=== PATIENT | female | born 1960 | race Caucasian/White ===

== ENCOUNTER 2017-06-10 06:13 | Emergency (ER) | payer OTHER ==
[2017-06-10] MEDS ORDERED: NORMAL SALINE 1000 ML 1,000 ML IV ONE ×2 (06:25→09:53)
--- NOTE | 2017-06-10 06:47 | ER Document Report ---
ED Respiratory Problem - General Chief Complaint: Breathing Difficulty Stated Complaint: DIFICULTY BREATHING Time Seen by Provider: 06/10/17 06:22 Notes: The patient is a 57-year-old female, past medical history MTHFR gene mutation ( on Coumadin), presents with 4 days of fever up to 102, sinus congestion, dry cough and lower sternal chest pain after she hit it against a hard object the other day. She was diagnosed with sinusitis several days ago and was started on a Z-Lalito. She denies leg swelling, hemoptysis, recent travel, back pain, nausea, vomiting, abdominal pain or headache. TRAVEL OUTSIDE OF THE [place] IN LAST 30 DAYS: No - Related Data Allergies/Adverse Reactions: No Known Allergies Allergy (Unverified 01/07/13 09:55) Home Medications: Current Home Medications Cyanocobalamin (Vitamin B-12) [Vitamin B-12] 1 tab PO DAILY 06/10/17 [History] Ergocalciferol (Vitamin D2) [Vitamin D] 1 tab PO DAILY 06/10/17 [History] Past Medical History - General Information source: Patient - Social History Smoking Status: Never Smoker Family History: Reviewed & Not Pertinent - Past Medical History Cardiac Medical History: Reports: Hx DVT - Patient is on Coumadin at this time. , Hx Hypertension, Hx Pulmonary Embolism Denies: Hx Heart Attack Pulmonary Medical History: Denies: Hx Asthma Neurological Medical History: Reports: Hx Seizures - The patient takes Dilantin. Denies: Hx Cerebrovascular Accident GI Medical History: Denies: Hx Hepatitis, Hx Hiatal Hernia, Hx Ulcer Infectious Medical History: Denies: Hx Hepatitis Past Surgical History: Reports: Hx Cholecystectomy, Hx Orthopedic Surgery - left meniscus, Hx Tubal Ligation. Denies: Hx Hysterectomy, Hx Mastectomy, Hx Open Heart Surgery, Hx Pacemaker Review of Systems - Review of Systems Notes: REVIEW OF SYSTEMS: CONSTITUTIONAL: -fevers, -chills EENT: -eye pain, -difficulty swallowing, -nasal congestion CARDIOVASCULAR: +chest pain, -syncope. RESPIRATORY: +cough, +SOB GASTROINTESTINAL: -abdominal pain, -nausea, -vomiting, -diarrhea GENITOURINARY: -dysuria, -hematuria MUSCULOSKELETAL: -back pain, -neck pain SKIN: -rash or skin lesions. HEMATOLOGIC: -easy bruising or bleeding. LYMPHATIC: -swollen, enlarged glands. NEUROLOGICAL: -altered mental status or loss of consciousness, -headache, - neurologic symptoms PSYCHIATRIC: -anxiety, -depression. ALL OTHER SYSTEMS REVIEWED AND NEGATIVE. Physical Exam - Vital signs Vitals: Temp Pulse Resp BP Pulse Ox 97.7 F 120 H 18 123/80 97 06/10/17 06:33 06/10/17 06:33 06/10/17 06:33 06/10/17 06:33 06/10/17 06:33 - Notes Notes: PHYSICAL EXAMINATION: GENERAL: Well-appearing, well-nourished and in no acute distress. HEAD: Atraumatic, normocephalic. EYES: Pupils equal round and reactive to light, extraocular movements intact, sclera anicteric, conjunctiva are normal. ENT: nares patent, oropharynx clear without exudates. Moist mucous membranes. NECK: Normal range of motion, supple without lymphadenopathy LUNGS: Breath sounds clear to auscultation bilaterally and equal. No wheezes rales or rhonchi. HEART: Regular rate and rhythm without murmurs. Tenderness over inferior sternum. ABDOMEN: Soft, nontender, normoactive bowel sounds. No guarding, no rebound. No masses appreciated. EXTREMITIES: Normal range of motion, no pitting or edema. No cyanosis. NEUROLOGICAL: Cranial nerves grossly intact. Normal speech, normal gait. Normal sensory and motor exams. PSYCH: Normal mood, normal affect. SKIN: Warm, Dry, normal turgor, no rashes or lesions noted. Course - Re-evaluation Re-evalutation: Patient's initial tachycardia on presentation resolved and she was at rest. With her prothrombotic history, subtherapeutic INR of breath and chest pain, d- dimer sent, which is slightly elevated. CTA chest ordered and it does not show any evidence of a PE or pneumonia. Instructed her to double up her Coumadin dose for today and follow-up with her primary care physician to have her INR rechecked. Patient feels much better after 2 L IV fluids and her tachycardia resolved. Instructed her to continue Flonase and saline spray for her sinus congestion. Given strict return precautions and she understands. - Vital Signs Vital signs: Temp Pulse Resp BP Pulse Ox 97.7 F 120 H 12 102/61 94 06/10/17 06:33 06/10/17 06:33 06/10/17 09:00 06/10/17 07:32 06/10/17 09:00 - Laboratory Result Diagrams: 06/10/17 06:45 06/10/17 06:45 Laboratory results interpreted by me: 06/10/17 06/10/17 06/10/17 06:45 06:45 06:45 MCHC 36.2 H PT 19.0 H D-Dimer 0.52 H Sodium 136.6 L Chloride 96 L Glucose 124 H AST 40 H ALT 62 H - Diagnostic Test Radiology reviewed: Image reviewed, Reports reviewed Radiology results interpreted by me: CXR: NAD CTA Chest: NAD - EKG Interpretation by Me EKG shows normal: Sinus rhythm, [place], Intervals, QRS Complexes, ST-T Waves Rate: Tachycardia Discharge - Discharge Clinical Impression: Shortness of breath Chest pain Qualifiers: Chest pain type: unspecified Qualified Code(s): R07.9 - Chest pain, unspecified Condition: Stable Disposition: HOME, SELF-CARE Additional Instructions: CHEST PAIN OF UNCLEAR CAUSE: The exact cause of your chest pain isn't clear. Fortunately, there is no evidence of a dangerous medical condition. Further testing may be required to find the source of the pain. Most often, we find that this pain is coming from the chest wall -- the muscles or rib joints in the chest. But chest pain can come from the lung and lung lining, the esophagus, the heart valves or heart lining, and even the stomach or gallbladder. Rest. Eat lightly until the pain is gone. We may prescribe medicine for pain and inflammation. You should call the physician immediately if the pain radiates to the shoulder, jaw or arms; if you start to run a fever or develop a cough; or if you develop shortness of breath, or other new or alarming symptoms. NORMAL EXAM AND WORKUP: At this time, your examination and workup show no significant abnormality. No significant abnormal physical findings were noted. All laboratory, EKG, and imaging (x-ray, CT scans, ultrasound) studies that were ordered show no significant abnormality. Although your examination and all studies that were ordered showed no significant abnormal finding, there are no examinations and no studies that are 100% accurate. There is always the possibility that some abnormality could exist and not be detected with physical examination or within the limits and capabilities of laboratory and other studies. You should return or follow up as you were instructed on your visit today for further evaluation if your symptoms do not resolve. CHEST WALL PAIN: Your chest pain may be coming from the chest wall. This is often caused by straining the muscles or joints in the chest during physical activity, direct trauma, coughing, or vigorous vomiting. Persons with arthritis are especially prone to this type of pain, due to inflammation of the cartilage joints near the breast bone. Occasionally, no cause can be found. Rest from strenuous physical activity. This kind of chest pain is usually made worse by movement of the chest. Depending on the symptoms, we may prescribe medicine for pain, muscle relaxation, and antiinflammatory effects. If the pain is new, and seems to be due to muscle strain, cold packs can help. Otherwise, apply gentle warmth to the painful area for 15 minutes every hour or two. You should call contact the doctor immediately if things change. Further evaluation is needed if you develop a fever or cough, if the nature of the pain changes, or if you become short of breath. FOLLOW-UP CARE: If you have been referred to a physician for follow-up care, call the physician s office for an appointment as you were instructed or within the next two days. If you experience worsening or a significant change in your symptoms, notify the physician immediately or return to the Emergency Department at any time for re-evaluation. SHORTNESS OF BREATH OR DYSPNEA: You were evaluated for shortness of breath, or dyspnea. Dyspnea has many causes, and some are more serious than others. Sometimes it's impossible to diagnose the cause of dyspnea with the tests that are available on an emergency basis. Based on our evaluation today, you do not need hospitalization now. We found no evidence of pneumonia, collapsed lung, blood clots in the lung, tumors , or heart failure. Causes of non-specific dyspnea can include asthma or bronchospasm, hyperventilation, emotional distress, heart disease, emphysema, fibrosis of the lung, and stiffness of the chest wall. In healthy individuals with a single episode, it's sometimes reasonable to do nothing but wait to see if the problem occurs again. Additional tests used to evaluate dyspnea can include cardiac stress testing, echocardiography, pulmonary function testing, CAT scan of the chest, bronchoscopy or pulmonary biopsy. Return if shortness of breath persists or worsens, or if you develop chest pain, fever, cough, confusion, or fainting. NORMAL EXAM AND WORKUP: At this time, your examination and workup show no significant abnormality. No significant abnormal physical findings were noted. All laboratory, EKG, and imaging (x-ray, CT scans, ultrasound) studies that were ordered show no significant abnormality. Although your examination and all studies that were ordered showed no significant abnormal finding, there are no examinations and no studies that are 100% accurate. There is always the possibility that some abnormality could exist and not be detected with physical examination or within the limits and capabilities of laboratory and other studies. You should return or follow up as you were instructed on your visit today for further evaluation if your symptoms do not resolve. FOLLOW-UP CARE: If you have been referred to a physician for follow-up care, call the physician s office for an appointment as you were instructed or within the next two days. If you experience worsening or a significant change in your symptoms, notify the physician immediately or return to the Emergency Department at any time for re-evaluation. UPPER RESPIRATORY ILLNESS: You have a viral infection of the respiratory passages -- a "cold." This common infection causes nasal congestion, drainage, and often sore throat and cough. It is highly contagious. The disease usually lasts about 10 to 14 days. There is no "cure" for the viral infection -- it must run its course. If there is a complication, such as bacterial infection in the nose, sinuses, middle ear, or bronchial tubes, antibiotics may be required. The antibiotics won't affect the virus. Drink plenty of fluids. A humidifier may help. An expectorant medication or decongestant may make you more comfortable. Use acetaminophen or ibuprofen for fever or aches. See the doctor if fever persists over two days, if there is any significant worsening of your symptoms, or if you simply fail to improve as expected. USE OF ACETAMINOPHEN (Tylenol): Acetaminophen may be taken for pain relief or fever control. It's much safer than aspirin, offering a wider range of "safe" dosages. It is safe during . Some brand names are Tylenol, Panadol, Datril, Anacin 3, Tempra, and Liquiprin. Acetaminophen can be repeated every four hours. The following are maximum recommended dosages: >89 pounds or adults 650 mg to 900 mg Acetaminophen can be repeated every four hours. Maximum dose not to exceed 4000 mg a day. SMOKING: If you smoke, you should stop smoking. The tar and chemicals in cigarette smoke are harmful. Smoking has been shown to cause: emphysema chronic bronchitis lung cancer mouth and throat cancer stomach and pancreas cancer premature aging defects In addition, smoking increases ear and lung infections in children of smokers. FOLLOW-UP CARE: If you have been referred to a physician for follow-up care, call the physician s office for an appointment as you were instructed or within the next two days. If you experience worsening or a significant change in your symptoms, notify the physician immediately or return to the Emergency Department at any time for re-evaluation. Referrals: NANCY BILLY MD [Primary Care Provider] - Follow up as needed
--- NOTE | 2017-06-10 07:00 | RADIOLOGY REPORT (SQ) ---
EXAM DESCRIPTION: CHEST SINGLE VIEW COMPLETED DATE/TIME: 06/10/2017 6:46 am REASON FOR STUDY: Shortness of breath. COMPARISON: None. EXAM PARAMETERS: NUMBER OF VIEWS: One view. TECHNIQUE: Single frontal radiographic view of the chest acquired. RADIATION DOSE: NA LIMITATIONS: None. FINDINGS: LUNGS AND PLEURA: No consolidation, pneumothorax or pleural effusion. MEDIASTINUM AND HILAR STRUCTURES: No masses. Contour normal. HEART AND VASCULAR STRUCTURES: Heart normal in size. Normal vasculature. BONES: Degenerative changes in the spine. HARDWARE: None in the chest. IMPRESSION: No acute radiographic finding in the chest. TECHNICAL DOCUMENTATION: JOB ID: [id number] [place]-64 2010 [employer]- All Rights Reserved
[2017-06-10 07:22] LABS: ABSOLUTE LYMPHOCYTES (AUTO) 1.6 10^3/uL (0.5-4.7); ABSOLUTE MONOCYTES (AUTO) 0.5 10^3/uL (0.1-1.4); ABSOLUTE NEUT (AUTO) 3.3 10^3/uL (1.7-8.2); BASOPHILS % (AUTO) 0.6 % (0-2); EOSINOPHILS % (AUTO) 0.2 % (0-6); HEMATOCRIT 41.5 % (36.0-47.0); HGB HCT DIFFERENCE 3.5; LYMPHOCYTES % (AUTO) 28.7 % (13-45); MEAN CORPUSCULAR HEMOGLOBIN 30.6 pg (27.0-33.4); MEAN CORPUSCULAR HGB CONC 36.2 g/dL (32.0-36.0); MEAN CORPUSCULAR VOLUME 85 fl (80-97); RED CELL DISTRIBUTION WIDTH 12.6 % (11.5-14.0); SEGMENTED NEUTROPHILS % (AUTO) 60.5 % (42-78); WHITE BLOOD COUNT 5.5 10^3/uL (4.0-10.5)
[2017-06-10 07:29] LABS: PARTIAL THROMBOPLASTIN TIME 32.7 SEC (23.5-35.8)
[2017-06-10 07:31] LABS: D-DIMER 0.52 ug/mL (0.00-0.50)
[2017-06-10 07:37] LABS: ALANINE AMINOTRANSFERASE 62 U/L (9-52); ALBUMIN 4.4 g/dL (3.5-5.0); ALKALINE PHOSPHATASE 118 U/L (38-126); ANION GAP 14 (5-19); ASPARTATE AMINO TRANSFERASE 40 U/L (14-36); BILIRUBIN,DIRECT 0.3 mg/dL (0.0-0.4); BILIRUBIN,TOTAL 0.5 mg/dL (0.2-1.3); BLOOD UREA NITROGEN 16 mg/dL (7-20); CALCIUM 9.1 mg/dL (8.4-10.2); CARBON DIOXIDE 27 mmol/L (22-30); CHLORIDE 96 mmol/L (98-107); CREATINE KINASE 78 U/L (30-135); CREATININE RESULT 0.62 mg/dL (0.52-1.25); GLUCOSE 124 mg/dL (75-110); POTASSIUM 4.2 mmol/L (3.6-5.0); SODIUM 136.6 mmol/L (137-145); TOTAL PROTEIN 7.4 g/dL (6.3-8.2)
[2017-06-10 07:53] LABS: TROPONIN I < 0.012 ng/mL
--- NOTE | 2017-06-10 08:17 | EKG REPORT ---
SEVERITY:- ABNORMAL ECG - SINUS TACHYCARDIA JOSH, CONSIDER BIATRIAL ABNORMALITIES BORDERLINE R WAVE PROGRESSION, ANTERIOR LEADS : Confirmed by: Choco Waldron MD 10-Jun-2017 08:16:01
--- NOTE | 2017-06-10 08:29 | RADIOLOGY REPORT (SQ) ---
EXAM DESCRIPTION: CTA CHEST COMPLETED DATE/TIME: 06/10/2017 8:17 am REASON FOR STUDY: tachycardic, CP, SOB, d-dimer elevated, clot disor COMPARISON: None. TECHNIQUE: CT scan of the chest performed using helical scanning technique with dynamic intravenous contrast injection. Images reviewed with lung, soft tissue and bone windows. Reconstructed coronal and sagittal MPR images reviewed. Additional 3 dimensional post-processing performed to develop Maximal Intensity Projection images (MS P). All images stored on PACS. All CT scanners at this facility use dose modulation, iterative reconstruction, and/or weight based d osing when appropriate to reduce radiation dose to as low as reasonably achievable (ALARA). [facility]: Dose Right [facility]: CareDose [facility]: Dose Right [facility]: Teradose 4D [facility]: [employer] [facility] CONTRAST TYPE AND DOSE: contrast/concentration: Isovue 370.00 mg/ml; Total Contrast Delivered: 77.0 ml; Total Saline Delivered: 95.3 ml Contrast bolus adequate for pulmonary arteries and aorta. RENAL FUNCTION: BUN 16 creatinine 0.62. RADIATION DOSE: . LIMITATIONS: None. FINDINGS: LUNGS AND PLEURA: No masses, infiltrates, pneumothorax. No pleural effusions, calcificati ons. AORTA AND GREAT VESSELS: No aneurysm. Contrast bolus not optimized for the aorta. HEART: No pericardial effusion. No significant coronary artery calcifications. PULMONARY ARTERIES: No emboli visualized in the main pulmonary arteries or the segmental branches. HILAR AND MEDIASTINAL STRUCTURES: No identified masses or abnormal nodes. HARDWARE: None in the chest. UPPER ABDOMEN: No significant findings. Limited exam. THYROID AND OTHER SOFT TISSUES: No masses. No adenopathy. BONES: No acute or significant finding. 3D MIPS: Confirm above findings. OTHER: No other significant finding. IMPRESSION: NORMAL CTA OF THE CHEST. NO PULMONARY EMBOLI. COMMENT: Quality ID # [id number]: Final reports with documentation of one or more dose reduction techniques (e.g., Automated exposure control, adjustment of the mA and/or kV according to patient size, use of iterative reconstruction technique) TECHNICAL DOCUMENTATION: JOB ID: [id number] [employer]- All Rights Reserved
[2017-06-10 12:13] VITALS: BP 98/64
== END 2017-06-10 12:12 | disposition home or self-care (01) ==
LOC: ER 06:13
DX: R06.02 Shortness of breath (principal); R07.9 Chest pain, unspecified; J32.9 Chronic sinusitis, unspecified; R50.9 Fever, unspecified; R05 Cough; W22.8XXA Striking against or struck by other objects, initial encounter; E72.12 Methylenetetrahydrofolate reductase deficiency; Z79.01 Long term (current) use of anticoagulants; I10 Essential (primary) hypertension; R00.0 Tachycardia, unspecified
CPT/HCPCS: 93005; 99285; 96360; 36415; 82550; 85025; 85610; 85730; 80053; 84484; 85379; 87804; 83880; 71010; 71275; 93010; J7030

== ENCOUNTER 2018-05-01 21:54 | Emergency (ER) | payer SELFPAY ==
[2018-05-01] MEDS ORDERED: PENICILLIN V POTASSIUM 500 MG TABLET PO ONE (22:58)
--- NOTE | 2018-05-01 22:59 | ER Document Report ---
ED Oral Problem - General Chief Complaint: Toothache Stated Complaint: TOOTHACHE Time Seen by Provider: 05/01/18 22:55 Mode of Arrival: Ambulatory Information source: Patient TRAVEL OUTSIDE OF THE [place] IN LAST 30 DAYS: No - HPI Patient complains to provider of: Toothache Onset: Yesterday Onset: Gradual Quality of pain: Achy, Fullness, Pressure Severity: Moderate Pain Level: 4 Associated symptoms: Chills Relieved by: Nothing Similar symptoms previously: No Recently seen / treated by doctor/dentist: No Notes: Patient is a 58-year-old female presenting to the emergency department on the advice of her dentist for complaints of painful swelling to a mandibular tooth that started yesterday, she reports that she has brushed and flossed and used a WaterPik multiple times but the gums surrounding the tooth is swollen, painful and red, she reports some chills but no measurable fever, has an appointment with her dentist Thursday morning at 745 - Related Data Allergies/Adverse Reactions: No Known Allergies Allergy (Unverified 01/07/13 09:55) Past Medical History - General Information source: Patient - Social History Smoking Status: Never Smoker Chew tobacco use (# tins/day): No Frequency of alcohol use: Rare Drug Abuse: None Family History: Reviewed & Not Pertinent Patient has suicidal ideation: No Patient has homicidal ideation: No - Past Medical History Cardiac Medical History: Reports: Hx DVT - Patient is on Coumadin at this time. , Hx Hypertension, Hx Pulmonary Embolism Denies: Hx Heart Attack Pulmonary Medical History: Denies: Hx Asthma Neurological Medical History: Reports: Hx Seizures - The patient takes Dilantin. Denies: Hx Cerebrovascular Accident Renal/ Medical History: Denies: Hx Peritoneal Dialysis GI Medical History: Denies: Hx Hepatitis, Hx Hiatal Hernia, Hx Ulcer Infectious Medical History: Denies: Hx Hepatitis Past Surgical History: Reports: Hx Cholecystectomy, Hx Orthopedic Surgery - left meniscus, Hx Tubal Ligation. Denies: Hx Hysterectomy, Hx Mastectomy, Hx Open Heart Surgery, Hx Pacemaker Review of Systems - Review of Systems Constitutional: Chills EENT: See HPI Cardiovascular: No symptoms reported Respiratory: No symptoms reported Gastrointestinal: No symptoms reported Genitourinary: No symptoms reported Female Genitourinary: No symptoms reported Musculoskeletal: No symptoms reported Skin: No symptoms reported Hematologic/Lymphatic: No symptoms reported Neurological/Psychological: No symptoms reported -: Yes All other systems reviewed and negative Physical Exam - Vital signs Vitals: Temp Pulse Resp BP Pulse Ox 98.8 F 85 18 122/71 96 05/01/18 22:05 05/01/18 22:05 05/01/18 22:05 05/01/18 22:05 05/01/18 22:05 - Notes Notes: - General General appearance: Appears well, Alert In distress: None - HEENT Head: Normocephalic, Atraumatic Eyes: Normal Conjunctiva: Normal Extraocular movements intact: Yes Eyelashes: Normal Pupils: PERRL - Respiratory Respiratory status: No respiratory distress - Cardiovascular Rhythm: Regular - Abdominal Inspection: Normal - Back Back: Normal - Extremities General upper extremity: Normal inspection General lower extremity: Normal inspection - Neurological Neuro grossly intact: Yes Orientation: AAOx4 [place] Coma Scale Eye Opening: Spontaneous [place] Coma Scale Verbal: Oriented [place] Coma Scale Motor: Obeys Commands [place] Coma Scale Total: 15 - Psychological Associated symptoms: Normal affect, Normal mood - Skin Skin Temperature: Warm Skin Moisture: Dry Skin Color: Normal - HEENT Teeth diagram: 1 - Gingival swelling with erythema and tenderness Course - Re-evaluation Re-evalutation: 05/02/18 00:59 Patient with gingival swelling with erythema and tenderness around tooth 29, reporting chills as well, started on antibiotics and advised to follow-up with her dentist in the next 1-2 days or return if symptoms worsen, patient acknowledges understanding and agreement with this plan - Vital Signs Vital signs: Temp Pulse Resp BP Pulse Ox 98.4 F 77 16 115/68 98 05/01/18 23:01 05/01/18 23:01 05/01/18 23:01 05/01/18 23:01 05/01/18 23:01 Discharge - Discharge Clinical Impression: Dental infection Condition: Stable Disposition: HOME, SELF-CARE Instructions: [facility], Penicillin V K ([facility]), Toothache ([facility]) Additional Instructions: Follow up with your primary care provider and dentist in one to 2 days. Return to the emergency room immediately if symptoms worsen or any additional concerns. Prescriptions: Penicillin V Potassium [Penicillin Vk 500 mg Tablet] 500 mg PO TID #30 tablet Referrals: NANCY BILLY MD [Primary Care Provider] - Follow up as needed
[2018-05-01 23:11] VITALS: BP 115/68
== END 2018-05-01 23:07 | disposition home or self-care (01) ==
LOC: ER 21:54
DX: K04.7 Periapical abscess without sinus (principal); K08.89 Other specified disorders of teeth and supporting structures; M79.89 Other specified soft tissue disorders; Z79.01 Long term (current) use of anticoagulants; I10 Essential (primary) hypertension
CPT/HCPCS: 99282

== ENCOUNTER 2018-07-25 14:33 | Emergency (ER) | payer OTHER ==
--- NOTE | 2018-07-25 15:12 | ER Document Report ---
ED General - General Mode of Arrival: Ambulatory Information source: Patient TRAVEL OUTSIDE OF THE [place] IN LAST 30 DAYS: No <MARLYS VERA - Last Filed: 07/25/18 16:55> <MARIA D IBRAHIM - Last Filed: 07/25/18 18:24> - General Chief Complaint: Chest Pain Stated Complaint: CHEST PAIN Time Seen by Provider: 07/25/18 14:45 Notes: 58-year-old female that presents to the emergency department today with complaints of chest pain which initially began a few days ago. Patient states she had a few "twinges" over the last few days but today at around 0930 her chest pain began and has remained constant since then. Patient does mention that around 10 days ago she began going back to the gym and has been using the elliptical. Patient has a known seizure disorder and did have a "petite mal seizure" today which was not out of the ordinary and has no concerns regarding this. (MARLYS VERA) - Related Data Allergies/Adverse Reactions: iodine Allergy (Verified 07/25/18 14:42) Past Medical History - General Information source: Patient - Social History Smoking Status: Never Smoker Cigarette use (# per day): No Frequency of alcohol use: Occasional Drug Abuse: None Lives with: Family Family History: Reviewed & Not Pertinent Patient has suicidal ideation: No Patient has homicidal ideation: No - Past Medical History Cardiac Medical History: Reports: Hx DVT - Patient is on Coumadin at this time., Hx Hypertension, Hx Pulmonary Embolism Neurological Medical History: Reports: Hx Seizures - The patient takes Dilantin Past Surgical History: Reports: Hx Cholecystectomy, Hx Orthopedic Surgery - left meniscus, Hx Tubal Ligation <MARLYS VERA - Last Filed: 07/25/18 16:55> Review of Systems - Review of Systems Constitutional: No symptoms reported EENT: No symptoms reported Cardiovascular: See HPI, Chest pain Respiratory: No symptoms reported Gastrointestinal: No symptoms reported Genitourinary: No symptoms reported Female Genitourinary: No symptoms reported Musculoskeletal: No symptoms reported Skin: No symptoms reported Hematologic/Lymphatic: No symptoms reported Neurological/Psychological: No symptoms reported -: Yes All other systems reviewed and negative <MARLYS VERA - Last Filed: 07/25/18 16:55> Physical Exam <MARLYS VERA - Last Filed: 07/25/18 16:55> - Vital signs Vitals: Resp Pulse Ox 18 98 07/25/18 14:47 07/25/18 14:47 - Notes Notes: Physical Exam: General: Alert, appears well. HEENT: Normocephalic. Atraumatic. PERRL. Extraocular movements intact. Oropharynx clear. Neck: Supple. Non-tender. Respiratory: No respiratory distress. Clear and equal breath sounds bilaterally. Right upper anterior chest wall tenderness with palpation. Right parasternal tenderness to palpation. Tenderness with palpation of the right medial breast. Cardiovascular: Regular rate and rhythm. Abdominal: Normal Inspection. Non-tender. No distension. Normal Bowel Sounds. Back: Non-tender. No deformity or step off. Extremities: Moves all four extremities. Upper extremities: Normal inspection. Normal ROM. Lower extremities: Normal inspection. No edema. Normal ROM. Neurological: Normal cognition. AAOx4. Normal speech. Psychological: Normal affect. Normal Mood. Skin: Warm. Dry. Normal color. (MARLYS VERA) Course - Laboratory Result Diagrams: 07/25/18 14:54 07/25/18 14:54 <MARLYS VERA - Last Filed: 07/25/18 16:55> - Laboratory Result Diagrams: 07/25/18 14:54 07/25/18 14:54 <MARIA D IBRAHIM - Last Filed: 07/25/18 18:24> - Vital Signs Vital signs: Temp Pulse Resp BP Pulse Ox 13 102/50 L 97 07/25/18 18:01 07/25/18 18:00 07/25/18 18:01 - Laboratory Laboratory results interpreted by me: 07/25/18 07/25/18 07/25/18 14:54 14:54 15:53 PT 24.0 H Carbon Dioxide 32 H Glucose 111 H Phenytoin 7.1 L Discharge <MARLYS VERA - Last Filed: 07/25/18 16:55> <MARIA D IBRAHIM - Last Filed: 07/25/18 18:24> - Discharge Clinical Impression: Acute chest wall pain Condition: Stable Disposition: HOME, SELF-CARE Additional Instructions: Chest Wall Pain Your chest pain has been diagnosed as coming from the chest wall. This is often caused by straining the muscles or joints in the chest during physical activity, direct trauma, coughing, or vigorous vomiting. Persons with arthritis are especially prone to this type of pain, due to inflammation of the cartilage joints near the breast bone. Occasionally, no cause can be found. Rest from strenuous physical activity. This kind of chest pain is usually made worse by movement of the chest. Depending on the symptoms, we may prescribe medicine for pain, muscle relaxation, and antiinflammatory effects. If the pain is new, and seems to be due to muscle strain, cold packs can help . Otherwise, apply gentle warmth to the painful area for 15 minutes every hour or two. You should contact the doctor immediately if things change. Further evaluation is needed if you develop a fever or cough, if the nature of the pain changes, or if you become short of breath. Stop your exercise routine for now. Try moist heat to the painful areas. Take Tylenol for pain. Follow-up with your primary care provider this week if not improving. RETURN TO THE EMERGENCY ROOM IF ANY NEW OR WORSENING SYMPTOMS. Referrals: NANCY BILLY MD [Primary Care Provider] - Follow up as needed Scribe Attestation: 07/25/18 16:31 I personally performed the services described in the documentation, reviewed and edited the documentation which was dictated to the scribe in my presence, and it accurately records my words and actions. (MARIA D IBRAHIM) Scribe Documentation - Scribe Written by Isaias:: Isaias Hillman, 07/25/2018 1702 acting as scribe for :: Kyle <MARLYS VERA - Last Filed: 07/25/18 16:55>
[2018-07-25 15:22] LABS: ABSOLUTE MONOCYTES (AUTO) 0.5 10^3/uL (0.1-1.4); ABSOLUTE NEUT (AUTO) 4.8 10^3/uL (1.7-8.2); BASOPHILS % (AUTO) 0.5 % (0-2); EOSINOPHILS % (AUTO) 0.5 % (0-6); HEMATOCRIT 40.1 % (36.0-47.0); HEMOGLOBIN 13.9 g/dL (12.0-15.5); LYMPHOCYTES % (AUTO) 16.1 % (13-45); MEAN CORPUSCULAR HEMOGLOBIN 29.9 pg (27.0-33.4); MEAN CORPUSCULAR HGB CONC 34.6 g/dL (32.0-36.0); MEAN CORPUSCULAR VOLUME 86 fl (80-97); MONOCYTES % (AUTO) 8.4 % (3-13); PLATELET COUNT 246 10^3/uL (150-450); RED BLOOD COUNT 4.64 10^6/uL (3.72-5.28); RED CELL DISTRIBUTION WIDTH 12.4 % (11.5-14.0); SEGMENTED NEUTROPHILS % (AUTO) 74.5 % (42-78); TOTAL CELLS COUNTED % (AUTO) 100 %; WHITE BLOOD COUNT 6.5 10^3/uL (4.0-10.5)
[2018-07-25 15:24] LABS: INTERNATIONAL RATION (INR) 2.03
[2018-07-25 15:36] LABS: ALANINE AMINOTRANSFERASE 37 U/L (9-52); ALBUMIN 4.5 g/dL (3.5-5.0); ALKALINE PHOSPHATASE 104 U/L (38-126); ANION GAP 6 (5-19); ASPARTATE AMINO TRANSFERASE 32 U/L (14-36); BILIRUBIN,DIRECT 0.2 mg/dL (0.0-0.4); BILIRUBIN,TOTAL 0.3 mg/dL (0.2-1.3); BLOOD UREA NITROGEN 14 mg/dL (7-20); CALCIUM 9.2 mg/dL (8.4-10.2); CARBON DIOXIDE 32 mmol/L (22-30); CHLORIDE 101 mmol/L (98-107); CREATINE KINASE 53 U/L (30-135); GLUCOSE 111 mg/dL (75-110); POTASSIUM 4.5 mmol/L (3.6-5.0); SODIUM 138.5 mmol/L (137-145); TOTAL PROTEIN 7.4 g/dL (6.3-8.2)
--- NOTE | 2018-07-25 15:45 | RADIOLOGY REPORT (SQ) ---
EXAM DESCRIPTION: CHEST SINGLE VIEW COMPLETED DATE/TIME: 07/25/2018 3:27 pm REASON FOR STUDY: right sided chest pain COMPARISON: None. EXAM PARAMETERS: NUMBER OF VIEWS: One view. TECHNIQUE: Single frontal radiographic view of the chest acquired. RADIATION DOSE: NA LIMITATIONS: None. FINDINGS: LUNGS AND PLEURA: No opacities, masses or pneumothorax. No pleural effusion. MEDIASTINUM AND HILAR STRUCTURES: No masses. Contour normal. HEART AND VASCULAR STRUCTURES: Heart normal in size. Normal vasculature. BONES: No acute findings. HARDWARE: None in the chest. OTHER: No other significant finding. IMPRESSION: NO ACUTE RADIOGRAPHIC FINDING IN THE CHEST. TECHNICAL DOCUMENTATION: JOB ID: [id number] [employer]- All Rights Reserved Reading location - IP/workstation name: [email or web address]
[2018-07-25 15:48] LABS: CREATINE KINASE MB 0.46 ng/mL (<4.55)
[2018-07-25 15:52] LABS: TROPONIN I < 0.012 ng/mL
--- NOTE | 2018-07-25 16:45 | EKG REPORT ---
SEVERITY:- OTHERWISE NORMAL ECG - SINUS TACHYCARDIA : Confirmed by: Choco Waldron MD 25-Jul-2018 16:44:39
[2018-07-25 18:13] VITALS: BP 102/50
== END 2018-07-25 18:39 | disposition home or self-care (01) ==
LOC: ER 14:33
DX: R07.89 Other chest pain (principal); G40.909 Epilepsy, unspecified, not intractable, without status epilepticus; I10 Essential (primary) hypertension
CPT/HCPCS: 36415; 71045; 80053; 80185; 82550; 82553; 84484; 85025; 85610; 93005; 93010; 99284

== ENCOUNTER 2019-12-21 17:00 | Emergency (ER) | payer OTHER ==
[2019-12-21] MEDS ORDERED: ONDANSETRON 4 MG TAB.RAPDIS PO ONE (17:39)
--- NOTE | 2019-12-21 17:42 | ER Document Report ---
ED Medical Screen (RME) - General Chief Complaint: Flank Pain Stated Complaint: FLANK PAIN Time Seen by Provider: 12/21/19 17:32 Primary Care Provider: NANCY BILLY MD [Primary Care Provider] - Follow up as needed Mode of Arrival: Ambulatory Information source: Patient Notes: 59-year-old female presents to ED for complaint of right flank pain. She states she started on Thursday with severe nausea and flank pain. She states that she went to the urgent care on Thursday they gave her Zyrtec and Flonase for the sinus congestion and did not do anything else for the flank pain. She states she saw medicine doctor again on Thursday because of abdomen and side pain was much worse they did x-ray told her she had some constipation and told her to take some mag citrate called him again today and and it was still there so gave another dose mag citrate she said that the pain is just getting worse is not getting better. She does have a past medical history of cholecystectomy bilateral tubal ligation and a meniscus repair in the knee. She does have a clotting disorder and is on Coumadin and her INR today is 3.12. She drinks weekly does not use any drugs she does have a history of seizures high blood pressure and hypothyroid. Patient is alert oriented respirations regular and unlabored speaking in full sentences. I have greeted and performed a rapid initial assessment of this patient. A comprehensive ED assessment and evaluation of the patient, analysis of test results and completion of medical decision making process will be conducted by an additional ED providers. TRAVEL OUTSIDE OF THE [place] IN LAST 30 DAYS: No - Related Data Allergies/Adverse Reactions: iodine Allergy (Verified 07/25/18 14:42) Past Medical History - Social History Frequency of alcohol use: Social Drug Abuse: None - Past Medical History Cardiac Medical History: Reports: Hx DVT - Patient is on Coumadin at this time., Hx Hypertension, Hx Pulmonary Embolism Denies: Hx Heart Attack Pulmonary Medical History: Denies: Hx Asthma Neurological Medical History: Reports: Hx Seizures - The patient takes Dilantin. Denies: Hx Cerebrovascular Accident Renal/ Medical History: Denies: Hx Peritoneal Dialysis GI Medical History: Denies: Hx Hepatitis, Hx Hiatal Hernia, Hx Ulcer Infectious Medical History: Denies: Hx Hepatitis Past Surgical History: Reports: Hx Cholecystectomy, Hx Orthopedic Surgery - left meniscus, Hx Tubal Ligation. Denies: Hx Hysterectomy, Hx Mastectomy, Hx Open Heart Surgery, Hx Pacemaker Physical Exam - Vital signs Vitals: Temp 98.3 F 12/21/19 17:01 Course - Vital Signs Vital signs: Temp Pulse Resp BP Pulse Ox 98.3 F 112 H 16 139/78 H 96 12/21/19 17:07 12/21/19 17:07 12/21/19 17:07 12/21/19 17:07 12/21/19 17:07 Doctor's Discharge - Discharge Referrals: NANCY BILLY MD [Primary Care Provider] - Follow up as needed
[2019-12-21 18:24] LABS: APPEARANCE,URINE CLEAR; BILIRUBIN,URINE NEGATIVE (NEGATIVE); COLOR,URINE YELLOW; GLUCOSE, URINE NEGATIVE (NEGATIVE); KETONES,URINE NEGATIVE (NEGATIVE); LEUKOCYTE ESTERASE,URINE NEGATIVE (NEGATIVE); NITRITE,URINE NEGATIVE (NEGATIVE); PROTEIN,URINE NEGATIVE (NEGATIVE); URINE SPECIFIC GRAVITY 1.015; UROBILINOGEN,URINE NEGATIVE mg/dL (<2.0)
--- NOTE | 2019-12-21 18:52 | RADIOLOGY REPORT (SQ) ---
EXAM DESCRIPTION: CT ABD/PELVIS NO ORAL OR IV IMAGES COMPLETED DATE/TIME: 12/21/2019 6:29 pm REASON FOR STUDY: right flank pain COMPARISON: None. TECHNIQUE: CT scan of the abdomen and pelvis performed without intravenous or oral contrast. Images reviewed with lung, soft tissue, and bone windows. Reconstructed coronal and sagittal MPR images revi ewed. All images stored on PACS. All CT scanners at this facility use dose modulation, iterative reconstruction, and/or weight based d osing when appropriate to reduce radiation dose to as low as reasonably achievable (ALARA). [facility]: Dose Right [facility]: CareDose [facility]: Dose Right [facility]: Teradose 4D [facility]: Smart Mass Mosaic RADIATION DOSE: CT Rad equipment meets quality standard of care and radiation dose reduction techniq ues were employed. CTDIvol: 11.9 mGy. DLP: 677 mGy-cm.mGy. LIMITATIONS: None. FINDINGS: LOWER CHEST: No significant findings. No nodules or infiltrates. NON-CONTRASTED LIVER, SPLEEN, ADRENALS: Evaluation limited by lack of IV contrast. No identified sign ificant masses. PANCREAS: No masses. No peripancreatic inflammatory changes. GALLBLADDER: Surgically absent. RIGHT KIDNEY AND URETER: No suspicious masses. Assessment limited by lack of IV contrast. No signif icant calcifications. No hydronephrosis or hydroureter. LEFT KIDNEY AND URETER: No suspicious masses. Assessment limited by lack of IV contrast. No signifi cant calcifications. No hydronephrosis or hydroureter. AORTA AND RETROPERITONEUM: No aneurysm. No retroperitoneal masses or adenopathy. BOWEL AND PERITONEAL CAVITY: No obvious masses or inflammatory changes. No free fluid. APPENDIX: Normal. PELVIS, BLADDER, AND ABDOMINAL WALL:No abnormal masses. No free fluid. Bladder normal. BONES: No significant findings. OTHER: No other significant finding. IMPRESSION: NO SIGNIFICANT OR ACUTE PROCESS IN THE ABDOMEN OR PELVIS. COMMENT: Quality ID # [id number]: Final reports with documentation of one or more dose reduction techniques (e.g., Automated exposure control, adjustment of the mA and/or kV according to patient size, use of iterative reconstruction technique) TECHNICAL DOCUMENTATION: JOB ID: [id number] 2010 [employer]- All Rights Reserved Reading location - IP/workstation name: [email or web address]
[2019-12-21 19:09] LABS: ABSOLUTE LYMPHOCYTES (AUTO) 1.6 10^3/uL (0.5-4.7); ABSOLUTE MONOCYTES (AUTO) 0.8 10^3/uL (0.1-1.4); ABSOLUTE NEUT (AUTO) 4.3 10^3/uL (1.7-8.2); BASOPHILS % (AUTO) 0.6 % (0-2); EOSINOPHILS % (AUTO) 0.4 % (0-6); HEMATOCRIT 43.1 % (36.0-47.0); HEMOGLOBIN 15.3 g/dL (12.0-15.5); LYMPHOCYTES % (AUTO) 23.2 % (13-45); MEAN CORPUSCULAR HEMOGLOBIN 30.4 pg (27.0-33.4); MEAN CORPUSCULAR HGB CONC 35.4 g/dL (32.0-36.0); MEAN CORPUSCULAR VOLUME 86 fl (80-97); MONOCYTES % (AUTO) 11.9 % (3-13); PLATELET COUNT 246 10^3/uL (150-450); RED BLOOD COUNT 5.03 10^6/uL (3.72-5.28); RED CELL DISTRIBUTION WIDTH 12.4 % (11.5-14.0); SEGMENTED NEUTROPHILS % (AUTO) 63.9 % (42-78); TOTAL CELLS COUNTED % (AUTO) 100 %; WHITE BLOOD COUNT 6.7 10^3/uL (4.0-10.5)
[2019-12-21 19:20] LABS: ALKALINE PHOSPHATASE 110 U/L (38-126); ANION GAP 10 (5-19); ASPARTATE AMINO TRANSFERASE 42 U/L (14-36); BILIRUBIN,TOTAL 0.5 mg/dL (0.2-1.3); BLOOD UREA NITROGEN 15 mg/dL (7-20); CALCIUM 9.6 mg/dL (8.4-10.2); CARBON DIOXIDE 32 mmol/L (22-30); CHLORIDE 93 mmol/L (98-107); GLUCOSE 105 mg/dL (75-110); POTASSIUM 3.9 mmol/L (3.6-5.0); TOTAL PROTEIN 8.6 g/dL (6.3-8.2)
[2019-12-21] MEDS ORDERED: KETOROLAC TROMETHAMINE INJ/PF 30 MG/1 ML SDV IV ONE (21:50)
--- NOTE | 2019-12-21 21:55 | ER Document Report ---
ED General - General Chief Complaint: Flank Pain Stated Complaint: FLANK PAIN Time Seen by Provider: 12/21/19 17:32 Primary Care Provider: NANCY BILLY MD [Primary Care Provider] - Follow up as needed Mode of Arrival: Ambulatory Notes: Patient is a 59-year-old white female with a past medical history of prior cholecystectomy, clotting disorder on Coumadin who presented about a week ago to the urgent care with complaints of sinus symptoms and "upset stomach". She states she was placed on Flonase and Zyrtec. She states her sinus symptoms improved some but she started having more focal problems with the abdomen. States that she was having some bloating and discomfort generalized. She went and saw her primary, Dr. Jones who did an x-ray and suspected constipation, placed the patient on a bottle of magnesium citrate. That was yesterday. She called this morning saying she was not feeling much better, they gave her another bottle of magnesium citrate. She states she is having bowel movements however they are now watery. She admits to some mild associated nausea denies any vomiting. Denies any fever, recent travel or known sick contacts. Reports she is not had a menstrual cycle in over 2 years. She denies any urinary complaints. TRAVEL OUTSIDE OF THE [place] IN LAST 30 DAYS: No - Related Data Allergies/Adverse Reactions: iodine Allergy (Verified 07/25/18 14:42) Past Medical History - General Information source: Patient - Social History Smoking Status: Never Smoker Frequency of alcohol use: Social Drug Abuse: None Family History: Reviewed & Not Pertinent Patient has homicidal ideation: No - Past Medical History Cardiac Medical History: Reports: Hx DVT - Patient is on Coumadin at this time., Hx Hypertension, Hx Pulmonary Embolism Denies: Hx Heart Attack Pulmonary Medical History: Denies: Hx Asthma Neurological Medical History: Reports: Hx Seizures - The patient takes Dilantin. Denies: Hx Cerebrovascular Accident Renal/ Medical History: Denies: Hx Peritoneal Dialysis GI Medical History: Denies: Hx Hepatitis, Hx Hiatal Hernia, Hx Ulcer Infectious Medical History: Denies: Hx Hepatitis Past Surgical History: Reports: Hx Cholecystectomy, Hx Orthopedic Surgery - left meniscus, Hx Tubal Ligation. Denies: Hx Hysterectomy, Hx Mastectomy, Hx Open Heart Surgery, Hx Pacemaker Review of Systems - Review of Systems Gastrointestinal: Abdominal pain, Diarrhea, Nausea -: Yes All other systems reviewed and negative Physical Exam - Vital signs Vitals: Temp 98.3 F 12/21/19 17:01 - General General appearance: Appears well, Alert In distress: None - HEENT Mucous membranes: Normal - Respiratory Respiratory status: No respiratory distress Chest status: Nontender Breath sounds: Normal Chest palpation: Normal - Cardiovascular Rhythm: Regular Heart sounds: Normal auscultation - Abdominal Inspection: Other - Right upper quadrant scar from prior cholecystectomy, otherwise normal inspection Distension: No distension Bowel sounds: Normal Tenderness: Tender - Right lower quadrant. No evidence of peritonitis. - Back Back: No: CVA tenderness - Extremities General upper extremity: Normal inspection, Nontender, Normal color, Normal ROM, Normal temperature General lower extremity: Normal inspection, Nontender, Normal color, Normal ROM, Normal temperature, Normal weight bearing. No: Guru's sign - Neurological Neuro grossly intact: Yes Cognition: Normal Orientation: AAOx4 [place] Coma Scale Eye Opening: Spontaneous [place] Coma Scale Verbal: Oriented [place] Coma Scale Motor: Obeys Commands [place] Coma Scale Total: 15 Speech: Normal - Psychological Associated symptoms: Normal affect, Normal mood - Skin Skin Temperature: Warm Skin Moisture: Dry Skin Color: Normal Course - Re-evaluation Re-evalutation: 12/21/19 21:53 Patient with a slightly elevated lipase. She is tolerating oral intake well. She will stick to a clear liquid diet for the next 24 hours and follow-up with Dr. Jones tomorrow as discussed. AST and ALT slightly elevated, likely chronic. There is some microscopic blood in the urine moderately. Her work-up is largely otherwise unremarkable. CT scan showing no acute process per radiologist. Possible missed stone. Discussed with patient the importance of follow-up in 24 hours for repeat abdominal exam and possible repeat CAT scan if worsening signs or symptoms. She verbalized understood and agreed. Advised that she return here or any ER immediately with any new, persistent or worsening symptoms. She again verbalized understood and agreed. - Vital Signs Vital signs: Temp Pulse Resp BP Pulse Ox 98.3 F 87 16 104/78 97 12/21/19 17:07 12/21/19 21:33 12/21/19 21:33 12/21/19 21:33 12/21/19 21:33 - Laboratory Result Diagrams: 12/21/19 18:45 12/21/19 18:45 Laboratory results interpreted by me: 12/21/19 12/21/19 17:45 18:45 Sodium 135.3 L Chloride 93 L Carbon Dioxide 32 H AST 42 H ALT 44 H Total Protein 8.6 H Lipase 674.7 H Urine Blood MODERATE H Discharge - Discharge Clinical Impression: Flank pain Condition: Stable Disposition: HOME, SELF-CARE Instructions: Flank Pain ([facility]), Oral Narcotic Medication ([facility]) Additional Instructions: Follow-up with your regular doctor in 24 hours for reevaluation. Return here or any ER immediately with any new, persistent or worsening symptoms. Referrals: NANCY BILLY MD [Primary Care Provider] - Follow up as needed
[2019-12-21] MEDS ORDERED: HYDROCODONE/ACETAMINOPHEN 5-325 MG (6 TAB/ER DISP) PO PRN (22:13)
[2019-12-21 22:44] VITALS: BP 140/74
== END 2019-12-21 22:44 | disposition home or self-care (01) ==
LOC: ER 17:00
DX: R10.9 Unspecified abdominal pain (principal); R31.29 Other microscopic hematuria; R10.813 Right lower quadrant abdominal tenderness; R79.89 Other specified abnormal findings of blood chemistry; R74.0 Nonspecific elevation of levels of transaminase and lactic acid dehydrogenase [LDH]; I10 Essential (primary) hypertension; R11.0 Nausea; R19.7 Diarrhea, unspecified; I82.409 Acute embolism and thrombosis of unspecified deep veins of unspecified lower extremity; I26.99 Other pulmonary embolism without acute cor pulmonale; Z79.01 Long term (current) use of anticoagulants; Z90.49 Acquired absence of other specified parts of digestive tract
CPT/HCPCS: 99284; 96374; 36415; 87086; 83690; 85025; 87088; 80053; 81001; 74176; S0119; J1885

== ENCOUNTER → 2020-03-02 | Outpatient (CLI) | payer OTHER ==
--- NOTE | 2020-03-02 13:03 | RADIOLOGY REPORT (SQ) ---
EXAM DESCRIPTION: NM GASTRIC EMPTYING STUDY IMAGES COMPLETED DATE/TIME: 03/02/2020 12:31 pm REASON FOR STUDY: EPIGASTRIC PAIN (R10.13) R10.13 EPIGASTRIC PAIN COMPARISON: None. RADIONUCLIDE AND DOSE: 2 millicuries Tc-99m Sulfur Colloid. Egg salad sandwich The route of agent administration: Oral. TECHNIQUE: 1 minute serial static imaging performed at time of meal, 1 hour, 2 hours, 3 hours, and 4 hours as needed. Once stomach reaches 90% emptying, the test is complete. Image intensity values pl otted with respect to time with linear regression algorithm. LIMITATIONS: None. FINDINGS: Patient was observed for 4 hours. Immediate post meal serves as baseline. Gastric emptying at 30 minutes was 14.2%. Gastric emptying at 60 minutes was 28.4% Gastric emptying at 90 minutes was 42.6%. Gastric emptying at 120 minutes was 56.8%. Gastric emptying at 240 minutes was 100%. Normal values: 60 minutes: 30-90% retained. If less than 30%, abnormally rapid emptying. If greater than 90%, delaye d gastric emptying. 120 minutes: <60% retained. If greater than 60%, delayed gastric emptying. 240 minutes: <10% retained. If greater than 10%, delayed gastric emptying. IMPRESSION: NORMAL GASTRIC EMPTYING. TECHNICAL DOCUMENTATION: JOB ID: [id number] 2010 [employer]- All Rights Reserved rev Reading location - IP/workstation name: [email or web address]
== END ==
LOC: RAD 07:37
PROVIDERS: ATTEND Internal Medicine Gastroenterology
DX: R10.13 Epigastric pain (principal)
CPT/HCPCS: 78264; A9541

== ENCOUNTER 2020-07-03 06:39 | Emergency (ER) | payer OTHER ==
--- NOTE | 2020-07-03 07:15 | ER Document Report ---
ED General - General Chief Complaint: Abdominal Pain Stated Complaint: ABDOMINAL PAIN Time Seen by Provider: 07/03/20 06:54 Primary Care Provider: ALVARO EDWARDS MD [Primary Care Provider] - Follow up as needed Mode of Arrival: Medic Information source: Patient, Emergency Med Personnel Notes: MY NOTES 60-year-old female arrives by EMS after complaining of severe epigastric and right sided chest pain that awoke her from sleep at 02 30 this morning. Patient admits to decreased p.o. intake and was diagnosed with Covid on Thursday 5 days ago. 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 All her children are grown 1 daughter in [place]. Patient has a prior history of pulmonary emboli x2 with DVT history as well and she is on Coumadin lisinopril with HCTZ and also takes Dilantin. Patient has chronic leg edema and takes Lasix for this. She was given Zofran IV because of nausea. She denies any fever chills but has tachycardia upon arrival. She had a 10 out of 10 chest pain when she awoke and upon arrival it was 3 out of 5. At my exam at 0 700 she had 1 out of 5 chest pain. She tested positive for Covid at [facility] last week. EMS reported pulse ox of 96% on room air with respiratory rate 18 temperature 98.6 blood sugar 103 with heart rate 118 blood pressure 106/75. TRAVEL OUTSIDE OF THE [place] IN LAST 30 DAYS: No - HPI Onset: This morning Onset/Duration: Sudden, Persistent, Worse Quality of pain: Stabbing Severity: Moderate Pain Level: 3 Associated symptoms: Chest pain - No, Shortness of breath, Weakness Exacerbated by: Sitting Similar symptoms previously: Yes Recently seen / treated by doctor: Yes - Related Data Allergies/Adverse Reactions: iodine Allergy (Verified 07/03/20 07:04) Past Medical History - General Information source: Patient - Non-smoker - Social History Smoking Status: Never Smoker Cigarette use (# per day): No Chew tobacco use (# tins/day): No Smoking Education Provided: No Frequency of alcohol use: Occasional - Wine once a week Drug Abuse: None Lives with: Alone - No pets Family History: Reviewed & Not Pertinent Patient has suicidal ideation: No Patient has homicidal ideation: No - Past Medical History Cardiac Medical History: Reports: Hx DVT - Patient is on Coumadin at this time., Hx Hypertension, Hx Pulmonary Embolism Denies: Hx Heart Attack Pulmonary Medical History: Denies: Hx Asthma Neurological Medical History: Reports: Hx Seizures - The patient takes Dilantin. Denies: Hx Cerebrovascular Accident Renal/ Medical History: Denies: Hx Peritoneal Dialysis GI Medical History: Denies: Hx Hepatitis, Hx Hiatal Hernia, Hx Ulcer Infectious Medical History: Denies: Hx Hepatitis Past Surgical History: Reports: Hx Cholecystectomy, Hx Orthopedic Surgery - left meniscus, Hx Tubal Ligation. Denies: Hx Hysterectomy, Hx Mastectomy, Hx Open Heart Surgery, Hx Pacemaker Review of Systems - Review of Systems Constitutional: See HPI, Recent illness EENT: No symptoms reported Cardiovascular: See HPI, Chest pain, Palpitations, Heart racing Respiratory: See HPI, Hurts to breathe, Short of breath. denies: Cough, Hemoptysis, Sputum, Stridor, Wheezing Gastrointestinal: See HPI, Nausea Genitourinary: No symptoms reported Female Genitourinary: No symptoms reported Musculoskeletal: No symptoms reported Skin: No symptoms reported Hematologic/Lymphatic: No symptoms reported Neurological/Psychological: No symptoms reported -: Yes All other systems reviewed and negative Physical Exam - Vital signs Vitals: Temp Pulse Resp BP Pulse Ox 98.9 F 113 H 12 127/64 H 98 07/03/20 06:40 07/03/20 06:40 07/03/20 06:40 07/03/20 06:40 07/03/20 06:40 Interpretation: Tachycardic - General General appearance: Appears well, Alert - HEENT Head: Normocephalic, Atraumatic Eyes: Normal Pupils: PERRL - Respiratory Respiratory status: No respiratory distress Chest status: Tender - Epigastric with right-sided chest pain Breath sounds: Normal Chest palpation: Tender - Epigastric with right-sided chest pain - Cardiovascular Rhythm: Tachycardia Heart sounds: Normal auscultation Murmur: No - Abdominal Inspection: Normal Distension: No distension Bowel sounds: Normal Tenderness: Nontender Organomegaly: No organomegaly - Rectal Hemorrhoids: Other - Deferred - Genitourinary Bimanuel exam: Other - Deferred - Back Back: Normal, Nontender - Extremities General upper extremity: Normal inspection, Nontender, Normal color, Normal ROM, Normal temperature General lower extremity: Normal inspection, Nontender, Normal color, Normal ROM, Normal temperature, Normal weight bearing. No: Guru's sign - Neurological Neuro grossly intact: Yes Cognition: Normal Orientation: AAOx4 Tremaine Coma Scale Eye Opening: Spontaneous Bartley Coma Scale Verbal: Oriented Bartley Coma Scale Motor: Obeys Commands Bartley Coma Scale Total: 15 Speech: Normal Motor strength normal: LUE, RUE, LLE, RLE Sensory: Normal - Psychological Associated symptoms: Normal affect, Normal mood - Skin Skin Temperature: Warm Skin Moisture: Dry Skin Color: Normal Course - Vital Signs Vital signs: Temp Pulse Resp BP Pulse Ox 98.9 F 113 H 17 120/68 93 07/03/20 06:40 07/03/20 06:40 07/03/20 08:01 07/03/20 08:01 07/03/20 08:01 - Laboratory Results Result Diagrams: 07/03/20 07:42 07/03/20 07:42 Laboratory Results Interpreted: 07/03/20 07/03/20 07:42 07:42 PT 30.9 H Sodium 135.4 L Chloride 97 L AST 67 H ALT 69 H Alkaline Phosphatase 132 H Critical Laboratory Results Reviewed: Yes Attending or Supervising Physician who Reviewed Labs: CHAPIN ELAINE JR - Radiology Results Radiology Results Interpreted: 07/03/20 10:[address] errol h[address] read CT chest x-ray reports of multifocal pneumonia on right lung sierra consistent with Covid 19 type lesions. No PE Critical Radiology Results Reviewed: Yes Attending or Supervising Physician who Reviewed Radiology: CHAPIN ELAINE JR - EKG Interpretation by Me EKG shows normal: Sinus rhythm Rate: Tachycardia Rhythm: NSR - Heart rate at 115 bpm sinus tachycardia with no ST elevation no ST depression and no T wave depression and no T wave elevation and axis within normal limits. This was read by myself and I agree with the EKG machine readings. Critical Care Note - Critical Care Note Comments: I discussed findings with the patient and because she is satting 94 to 95% on room air with facemask on I discussed possibility of home versus hospitalization . She would prefer to go home at this time. I advised her to take remdesivir ivermectin Zithromax Decadron and Pepcid and to return to the ER or hospital if should her symptoms persist or get worse. Discharge - Discharge Clinical Impression: Chest pain at rest, Pneumonia due to COVID-19 virus Condition: Stable Disposition: HOME, SELF-CARE Additional Instructions: Try toFollow-up with personal doctor this week.; The quarantined until symptoms resolve for least 2 weeks. Take medicines as directed encourage fluids like chamomile tea. Return to ER in 1 to 2 days if symptoms persist or worsen. Also note you have been placed on remdesivir 200 mg day 1 then 100 mg daily for 9 days. Prescriptions: Dexamethasone [Decadron 4 Mg Tablet] 4 mg PO DAILY #5 tablet Famotidine [Pepcid 20 mg Tablet] 20 mg PO BID #12 tablet Ivermectin [Stromectol 3 mg Tablet] 3 mg PO DAILY #3 tablet Azithromycin [Zithromax 250 mg Tablet] 250 mg PO ASDIR PRN #6 tablet PRN Reason: Forms: Return to Work Referrals: ALVARO EDWARDS MD [Primary Care Provider] - Follow up as needed
--- NOTE | 2020-07-03 07:22 | EKG REPORT ---
SEVERITY:- OTHERWISE NORMAL ECG - SINUS TACHYCARDIA : Confirmed by: Choco Waldron MD 03-Jul-2020 07:21:59
[2020-07-03] MEDS ORDERED: MORPHINE SULFATE 10 MG/ML INJ IV ONE (07:24)
[2020-07-03] MEDS ORDERED: KETOROLAC TROMETHAMINE INJ/PF 30 MG/1 ML SDV IV ONE (07:59)
[2020-07-03 08:05] LABS: ABSOLUTE LYMPHOCYTES (AUTO) 1.1 10^3/uL (0.5-4.7); ABSOLUTE MONOCYTES (AUTO) 0.7 10^3/uL (0.1-1.4); BASOPHILS % (AUTO) 0.5 % (0-2); EOSINOPHILS % (AUTO) 0.3 % (0-6); HEMATOCRIT 42.8 % (36.0-47.0); LYMPHOCYTES % (AUTO) 18.6 % (13-45); MEAN CORPUSCULAR HEMOGLOBIN 30.1 pg (27.0-33.4); MEAN CORPUSCULAR HGB CONC 35.2 g/dL (32.0-36.0); MEAN CORPUSCULAR VOLUME 86 fl (80-97); MONOCYTES % (AUTO) 12.4 % (3-13); PLATELET COUNT 177 10^3/uL (150-450); RED CELL DISTRIBUTION WIDTH 12.5 % (11.5-14.0); SEGMENTED NEUTROPHILS % (AUTO) 68.2 % (42-78); TOTAL CELLS COUNTED % (AUTO) 100 %; WHITE BLOOD COUNT 5.9 10^3/uL (4.0-10.5)
--- NOTE | 2020-07-03 08:08 | RADIOLOGY REPORT (SQ) ---
EXAM DESCRIPTION: CHEST SINGLE VIEW IMAGES COMPLETED DATE/TIME: 07/03/2020 6:16 am REASON FOR STUDY: SOB COMPARISON: None. EXAM PARAMETERS: NUMBER OF VIEWS: One view. TECHNIQUE: Single frontal radiographic view of the chest acquired. RADIATION DOSE: NA LIMITATIONS: None. FINDINGS: LUNGS AND PLEURA: Lungs are hyperinflated. No opacities, masses or pneumothorax. No pleur al effusion. MEDIASTINUM AND HILAR STRUCTURES: No masses. Contour normal. HEART AND VASCULAR STRUCTURES: Heart normal in size. Normal vasculature. BONES: No acute findings. HARDWARE: None in the chest. OTHER: No other significant finding. IMPRESSION: No acute cardiopulmonary disease. Hyperinflated lungs which can be seen with obstructiv e lung disease. TECHNICAL DOCUMENTATION: JOB ID: [id number] 2010 [employer]- All Rights Reserved Reading location - IP/workstation name: [email or web address]
[2020-07-03 08:14] LABS: INTERNATIONAL RATION (INR) 2.99; PROTHROMBIN TIME 30.9 SEC (11.4-15.4)
[2020-07-03 08:31] LABS: D-DIMER < 0.27 ug/mL (0.00-0.50)
[2020-07-03 08:38] LABS: ALBUMIN 4.3 g/dL (3.5-5.0); ALKALINE PHOSPHATASE 132 U/L (38-126); ANION GAP 8 (5-19); ASPARTATE AMINO TRANSFERASE 67 U/L (14-36); BILIRUBIN,DIRECT 0.1 mg/dL (0.0-0.4); BILIRUBIN,TOTAL 0.5 mg/dL (0.2-1.3); BLOOD UREA NITROGEN 12 mg/dL (7-20); CALCIUM 9.6 mg/dL (8.4-10.2); CARBON DIOXIDE 30 mmol/L (22-30); CHLORIDE 97 mmol/L (98-107); CREATINE KINASE 35 U/L (30-135); GLUCOSE 95 mg/dL (75-110); POTASSIUM 3.9 mmol/L (3.6-5.0); TOTAL PROTEIN 7.8 g/dL (6.3-8.2)
[2020-07-03 09:06] LABS: CREATINE KINASE MB < 0.22 ng/mL (<4.55); TROPONIN I < 0.012 ng/mL
--- NOTE | 2020-07-03 09:44 | RADIOLOGY REPORT (SQ) ---
EXAM DESCRIPTION: CTA CHEST IMAGES COMPLETED DATE/TIME: 07/03/2020 8:17 am REASON FOR STUDY: cp sob hx pe /+covid COMPARISON: 06/10/2017 TECHNIQUE: CT scan of the chest performed using helical scanning technique with dynamic intravenous contrast injection. Images reviewed with lung, soft tissue and bone windows. Reconstructed coronal and sagittal MPR images reviewed. Additional 3 dimensional post-processing performed to develop Maximal Intensity Projection images (VT P). All images stored on PACS. All CT scanners at this facility use dose modulation, iterative reconstruction, and/or weight based d osing when appropriate to reduce radiation dose to as low as reasonably achievable (ALARA). [facility]: Dose Right [facility]: CareDose [facility]: Dose Right [facility]: Teradose 4D [facility]: BillGuard CONTRAST TYPE AND DOSE: contrast/concentration: Isovue 350.00 mmol/ml; Total Contrast Delivered: 62. 0 ml; Total Saline Delivered: 51.1 ml Contrast bolus optimized for the pulmonary arteries. Not diagnostic for the aorta. RENAL FUNCTION: GFR > 60. RADIATION DOSE: CT Rad equipment meets quality standard of care and radiation dose reduction techniq ues were employed. CTDIvol: 9.9 - 14.6 mGy. DLP: 531 mGy-cm. . LIMITATIONS: None. FINDINGS: LUNGS AND PLEURA: Trachea has normal caliber and appearance. No bronchial wall thickening or bronchiectasis. New patchy areas of ground-glass nodularity in the right upper and left upper lo be, with predominantly peripheral distribution. Discrete ground-glass nodule in the right lower lobe measures 9 mm (image 54). No focal confluent consolidation. No pleural effusion or pneumothorax. AORTA AND GREAT VESSELS: No aneurysm. Contrast bolus not optimized for the aorta. HEART: No pericardial effusion. No significant coronary artery calcifications. PULMONARY ARTERIES: No emboli visualized in the main pulmonary arteries or the segmental branches. HILAR AND MEDIASTINAL STRUCTURES: No identified masses or abnormal nodes. HARDWARE: None in the chest. UPPER ABDOMEN: No significant findings. Limited exam. THYROID AND OTHER SOFT TISSUES: No masses. No adenopathy. BONES: No acute or significant finding. 3D MIPS: Confirm above findings. OTHER: No other significant finding. IMPRESSION: 1. Multifocal ground-glass nodularity predominantly in the upper lobes, suspicious for multifocal pne umonia. Commonly reported imaging features of COVID-19 pneumonia are present. Other processes such as influenza pneumonia and organizing pneumonia, as can be seen with drug toxicity and connective tis luis disease, can cause a similar imaging pattern. 2. Focal discrete ground-glass nodule in the right lower lobe may be related to multifocal pneumonia, however cannot exclude neoplasm. A follow-up CT of the chest in 3 months is recommended to confirm complete resolution. 3. No pulmonary embolism. COMMENT: Quality ID # [id number]: Final reports with documentation of one or more dose reduction techniques (e.g., Automated exposure control, adjustment of the mA and/or kV according to patient size, use of iterative reconstruction technique) TECHNICAL DOCUMENTATION: JOB ID: [id number] 2010 [employer]- All Rights Reserved Reading location - IP/workstation name: [id number]
[2020-07-03] MEDS ORDERED: AZITHROMYCIN INJ 500 MG VIAL IV ONE (10:38)
[2020-07-03] MEDS ORDERED: DEXAMETHASONE SOD PHOS INJ 10 MG/1 ML VIAL IV ONE (10:40)
[2020-07-03] MEDS ORDERED: FAMOTIDINE INJ/PF 20 MG/2 ML SDV IV ONE (10:40)
[2020-07-03 13:28] VITALS: BP 124/86
== END 2020-07-03 13:28 | disposition home or self-care (01) ==
LOC: ER 06:39
DX: U07.1 COVID-19 (principal); J12.89 Other viral pneumonia; R07.9 Chest pain, unspecified; R10.13 Epigastric pain; Z86.711 Personal history of pulmonary embolism; Z86.718 Personal history of other venous thrombosis and embolism; Z79.01 Long term (current) use of anticoagulants
CPT/HCPCS: 93005; 99285; 96375; 96365; 36415; 87040; 82553; 82550; 84443; 80185; 85025; 85610; 80053; 84484; 85379; 71045; 71275; 93010; J1885; J0456; S0028; J1100

== ENCOUNTER 2020-07-08 09:25 | Observation (INO) | payer OTHER ==
--- NOTE | 2020-07-08 10:39 | ER Document Report ---
ED Medical Screen (RME) - General Chief Complaint: Shortness Of Breath Stated Complaint: SHORT OF BREATH,COUGH,CONGESTION Time Seen by Provider: 07/08/20 10:35 Primary Care Provider: ALVARO EDWARDS MD [Primary Care Provider] - Follow up as needed Mode of Arrival: Ambulatory Information source: Patient Notes: 60-year-old female presented to ED for complaint of shortness of breath trouble breathing chest pain or back pain. She states she was here on the 18th tested positive for Covid and for pneumonia. She states she is having worse pain and more shortness of breath than she was before. She states they started on azithromycin and steroids and she is still sick. She can all of the a azithromycin and is actually worse. The states in the last several days she has passed out a couple times. We will repeat her chest x-ray blood work and EKG. She will be seen by another provider. I have greeted and performed a rapid initial assessment of this patient. A comprehensive ED assessment and evaluation of the patient, analysis of test results and completion of medical decision making process will be conducted by an additional ED providers. TRAVEL OUTSIDE OF THE [place] IN LAST 30 DAYS: No - Related Data Allergies/Adverse Reactions: iodine Allergy (Verified 07/03/20 07:04) Past Medical History - Past Medical History Cardiac Medical History: Reports: Hx DVT - Patient is on Coumadin at this time., Hx Hypertension, Hx Pulmonary Embolism Denies: Hx Heart Attack Pulmonary Medical History: Denies: Hx Asthma Neurological Medical History: Reports: Hx Seizures - The patient takes Dilantin. Denies: Hx Cerebrovascular Accident Renal/ Medical History: Denies: Hx Peritoneal Dialysis GI Medical History: Denies: Hx Hepatitis, Hx Hiatal Hernia, Hx Ulcer Infectious Medical History: Denies: Hx Hepatitis Past Surgical History: Reports: Hx Cholecystectomy, Hx Orthopedic Surgery - left meniscus, Hx Tubal Ligation. Denies: Hx Hysterectomy, Hx Mastectomy, Hx Open Heart Surgery, Hx Pacemaker Physical Exam - Vital signs Vitals: Temp Pulse Resp BP Pulse Ox 98.4 F 89 16 112/66 94 07/08/20 09:31 07/08/20 09:31 07/08/20 09:31 07/08/20 09:31 07/08/20 09:31 Course - Vital Signs Vital signs: Temp Pulse Resp BP Pulse Ox 98.4 F 89 16 112/66 94 07/08/20 09:31 07/08/20 09:31 07/08/20 09:31 07/08/20 09:31 07/08/20 09:31 Doctor's Discharge - Discharge Referrals: ALVARO EDWARDS MD [Primary Care Provider] - Follow up as needed
--- NOTE | 2020-07-08 12:01 | RADIOLOGY REPORT (SQ) ---
EXAM DESCRIPTION: CHEST SINGLE VIEW IMAGES COMPLETED DATE/TIME: 07/08/2020 11:23 am REASON FOR STUDY: Short of breath cough congestion chest pain COMPARISON: 11/12/2019 EXAM PARAMETERS: NUMBER OF VIEWS: One view. TECHNIQUE: Single frontal radiographic view of the chest acquired. RADIATION DOSE: NA LIMITATIONS: None. FINDINGS: LUNGS AND PLEURA: No focal consolidation, pleural effusion, or pneumothorax. MEDIASTINUM AND HILAR STRUCTURES: No masses. Contour normal. HEART AND VASCULAR STRUCTURES: Heart normal in size. Normal vasculature. BONES: No acute findings. HARDWARE: None in the chest. OTHER: No other significant finding. IMPRESSION: Stable radiographic appearance of the chest. No evidence of acute cardiopulmonary abnor mality. TECHNICAL DOCUMENTATION: JOB ID: [id number] 2010 [employer]- All Rights Reserved Reading location - IP/workstation name: [email or web address]
[2020-07-08 12:05] LABS: ABSOLUTE MONOCYTES (AUTO) 0.6 10^3/uL (0.1-1.4); BASOPHILS % (AUTO) 0.4 % (0-2); EOSINOPHILS % (AUTO) 0.1 % (0-6); HEMOGLOBIN 14.3 g/dL (12.0-15.5); MEAN CORPUSCULAR HEMOGLOBIN 30.3 pg (27.0-33.4); MEAN CORPUSCULAR HGB CONC 35.7 g/dL (32.0-36.0); MEAN CORPUSCULAR VOLUME 85 fl (80-97); MONOCYTES % (AUTO) 12.7 % (3-13); PLATELET COUNT 186 10^3/uL (150-450); RED BLOOD COUNT 4.72 10^6/uL (3.72-5.28); RED CELL DISTRIBUTION WIDTH 12.5 % (11.5-14.0); SEGMENTED NEUTROPHILS % (AUTO) 64.8 % (42-78); TOTAL CELLS COUNTED % (AUTO) 100 %; WHITE BLOOD COUNT 4.6 10^3/uL (4.0-10.5)
[2020-07-08 12:17] LABS: ALKALINE PHOSPHATASE 135 U/L (38-126); ANION GAP 6 (5-19); ASPARTATE AMINO TRANSFERASE 103 U/L (14-36); BILIRUBIN,DIRECT 0.1 mg/dL (0.0-0.4); BILIRUBIN,TOTAL 0.5 mg/dL (0.2-1.3); BLOOD UREA NITROGEN 12 mg/dL (7-20); CALCIUM 8.7 mg/dL (8.4-10.2); CARBON DIOXIDE 30 mmol/L (22-30); CHLORIDE 96 mmol/L (98-107); GLUCOSE 91 mg/dL (75-110); TOTAL PROTEIN 7.5 g/dL (6.3-8.2)
--- NOTE | 2020-07-08 13:35 | ER Document Report ---
ED Respiratory Problem - General Chief Complaint: Shortness Of Breath Stated Complaint: SHORT OF BREATH,COUGH,CONGESTION Time Seen by Provider: 07/08/20 10:35 Primary Care Provider: ALVARO EDWARDS MD [Primary Care Provider] - Follow up as needed Mode of Arrival: Ambulatory Information source: Patient Notes: Patient is a 60-year-old female returns emergency room complaining of increasing shortness of breath and near syncope. Patient states she was seen here on [address] of her abdomen and pelvis which showed in the lower lung areas bilateral groundglass appearances. Patient was diagnosed with a pneumonia sent home on Zithromax and steroids but states she is gotten worse over time. Patient has a pertinent past medical history for a clotting factor problem. 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 She said yesterday her Coumadin level was 2.5. So she runs at a hypercoagulable state. Patient states she is actually feeling worse than before she was diagnosed and with a positive coronavirus test on 03 July. Patient denies smoking or hormonal use. She does state that she has had some chest d iscomfort and pain as well. She has right lower back pain as well. TRAVEL OUTSIDE OF THE [place] IN LAST 30 DAYS: No - HPI Patient complains to provider of: Chest pain, Cough, Short of breath Onset: Last week Duration: Continuous, Worse/persistent Initiating Event: URI Quality of pain: Achy, Burning, Cramping Severity: Moderate Pain Level: 4 Context: Hx COPD Short of Breath: Moderate Chest pain/discomfort: Heaviness Cough: Productive Sputum amount: Moderate Sputum color: Clear Sputum consistency: Thick At home treatment: Oral steroids Associated symptoms: Chills, Congestion, Cough, Fever, Muscle spasms, PND, Runny nose, Wheezing Worsened by: Activity Similar symptoms previously: Yes Recently seen / treated by doctor: Yes - Related Data Allergies/Adverse Reactions: iodine Allergy (Verified 07/03/20 07:04) Past Medical History - General Information source: Patient - Social History Smoking Status: Never Smoker Cigarette use (# per day): No Chew tobacco use (# tins/day): No Smoking Education Provided: No Frequency of alcohol use: None - Covid Drug Abuse: None Family History: Reviewed & Not Pertinent - Past Medical History Cardiac Medical History: Reports: Hx DVT - Patient is on Coumadin at this time., Hx Hypertension, Hx Pulmonary Embolism Denies: Hx Heart Attack Pulmonary Medical History: Denies: Hx Asthma Neurological Medical History: Reports: Hx Seizures - The patient takes Dilantin. Denies: Hx Cerebrovascular Accident Renal/ Medical History: Denies: Hx Peritoneal Dialysis GI Medical History: Denies: Hx Hepatitis, Hx Hiatal Hernia, Hx Ulcer Infectious Medical History: Denies: Hx Hepatitis Past Surgical History: Reports: Hx Cholecystectomy, Hx Orthopedic Surgery - left meniscus, Hx Tubal Ligation. Denies: Hx Hysterectomy, Hx Mastectomy, Hx Open Heart Surgery, Hx Pacemaker Review of Systems - Review of Systems Constitutional: Chills, Fever EENT: See HPI, Nose congestion, Nose discharge Cardiovascular: See HPI, Chest pain, Dyspnea Respiratory: See HPI, Short of breath, Wheezing Gastrointestinal: No symptoms reported Genitourinary: No symptoms reported Female Genitourinary: No symptoms reported Musculoskeletal: No symptoms reported Skin: No symptoms reported Hematologic/Lymphatic: No symptoms reported Neurological/Psychological: No symptoms reported -: Yes All other systems reviewed and negative Physical Exam - Vital signs Vitals: Temp Pulse Resp BP Pulse Ox 98.4 F 89 16 112/66 94 07/08/20 09:31 07/08/20 09:31 07/08/20 09:31 07/08/20 09:31 07/08/20 09:31 Interpretation: Hypoxic - Notes Notes: PHYSICAL EXAMINATION: GENERAL: Patient is a well-nourished well-developed 52-year-old female no apparent distress on examination today. HEAD: Atraumatic, normocephalic. EYES: Pupils equal round and reactive to light, extraocular movements intact, conjunctiva are normal. ENT: Examination head and upper airway show nasal mucosa be mildly erythematous and edematous with some rhinorrhea noted. Posterior pharynx shows no erythema no exudate and no encroachment upon the uvula. There is no deviation of the uvula. NECK: Normal range of motion, supple without lymphadenopathy LUNGS: Auscultation patient's lungs show bilateral breath sounds decreased throughout faint inspiratory expiratory wheezes noted throughout no rhonchi is auscultated at this time. HEART: Regular rate and rhythm without murmurs ABDOMEN: Soft, nontender, nondistended abdomen. No guarding, no rebound. No masses appreciated. Female : deferred Musculoskeletal: Normal range of motion, no pitting or edema. No cyanosis. NEUROLOGICAL: Normal speech, normal gait. Normal sensory, motor exams PSYCH: Normal mood, normal affect. SKIN: Warm, Dry, normal turgor, no rashes or lesions noted. 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 She says she did test yesterday and her Coumadin level is 2.5 which she states is where she needs to be. Patient does not smoke and states that she is also had a temp to 101.7. Given that she had a partial CT of the abdomen and pelvis showed partial of the lungs with the groundglass opacities I am going to go ahead and CTA her whole chest at this time. Patient states that she is so short of breath and her heart racing so fast that she nearly passes out. We will further investigate after CTA is done. - Vital Signs Vital signs: Temp Pulse Resp BP Pulse Ox 98.4 F 89 24 H 112/66 94 07/08/20 09:31 07/08/20 09:31 07/08/20 17:00 07/08/20 09:31 07/08/20 17:00 - Laboratory Results Result Diagrams: 07/08/20 11:35 07/08/20 11:35 Laboratory Results Interpreted: 07/08/20 07/08/20 07/08/20 11:35 11:35 11:35 PT 25.6 H APTT 47.0 H Sodium 131.5 L Chloride 96 L AST 103 H ALT 139 H Alkaline Phosphatase 135 H Urine Ascorbic Acid 40 H Critical Laboratory Results Reviewed: Yes Attending or Supervising Physician who Reviewed Labs: MILTON MORENO P - Radiology Results Critical Radiology Results Reviewed: Yes Attending or Supervising Physician who Reviewed Radiology: MILTON MORENO - Groundglass opacities - EKG Interpretation by Mn EKG shows normal: Sinus rhythm Rate: Normal Rhythm: NSR Additional EKG results interpreted by me: 07/08/20 17:44 ED physician/PA Discharge - Discharge Clinical Impression: COVID-19, Pneumonia due to COVID-19 virus Condition: Stable Disposition: ADMITTED OBSERVATION Admitting Provider: [facility] Admitted: I[facility]U Referrals: ALVARO EDWARDS MD [Primary Care Provider] - Follow up as needed
[2020-07-08] MEDS ORDERED: IPRATROPIUM/ALBUTEROL 0.5-2.5 MG/3 ML AMPUL NEB ONE (13:36)
[2020-07-08] MEDS ORDERED: METHYLPREDNISOLONE INJ 125 MG/2 ML SDV IV ONE (13:37)
[2020-07-08 13:53] LABS: INTERNATIONAL RATION (INR) 2.34; PROTHROMBIN TIME 25.6 SEC (11.4-15.4)
[2020-07-08 14:13] LABS: APPEARANCE,URINE CLEAR; BILIRUBIN,URINE NEGATIVE (NEGATIVE); COLOR,URINE YELLOW; GLUCOSE, URINE NEGATIVE (NEGATIVE); KETONES,URINE NEGATIVE (NEGATIVE); LEUKOCYTE ESTERASE,URINE NEGATIVE (NEGATIVE); NITRITE,URINE NEGATIVE (NEGATIVE); PROTEIN,URINE NEGATIVE (NEGATIVE); URINE SPECIFIC GRAVITY 1.021; UROBILINOGEN,URINE NEGATIVE mg/dL (<2.0)
--- NOTE | 2020-07-08 16:06 | RADIOLOGY REPORT (SQ) ---
EXAM DESCRIPTION: CTA CHEST IMAGES COMPLETED DATE/TIME: 07/08/2020 2:27 pm REASON FOR STUDY: Increasing sob COMPARISON: 07/03/2020. Chest radiograph same date. TECHNIQUE: CT scan of the chest performed using helical scanning technique with dynamic intravenous contrast injection. Images reviewed with lung, soft tissue and bone windows. Reconstructed coronal and sagittal MPR images reviewed. Additional 3 dimensional post-processing performed to develop Maximal Intensity Projection images ([place] P). All images stored on PACS. All CT scanners at this facility use dose modulation, iterative reconstruction, and/or weight based d osing when appropriate to reduce radiation dose to as low as reasonably achievable (ALARA). [facility]: Dose Right [facility]: CareDose [facility]: Dose Right [facility]: Teradose 4D [facility]: IntheGlo CONTRAST TYPE AND DOSE: contrast/concentration: Isovue 350.00 mmol/ml; Total Contrast Delivered: 75. 0 ml; Total Saline Delivered: 55.0 ml Contrast bolus optimized for the pulmonary arteries. Not diagnostic for the aorta. RENAL FUNCTION: GFR > 60. RADIATION DOSE: CT Rad equipment meets quality standard of care and radiation dose reduction techniq ues were employed. CTDIvol: 5.6 - 11.6 mGy. DLP: 450 mGy-cm. . LIMITATIONS: None. FINDINGS: LUNGS AND PLEURA: There is worsening patchy ground-glass and nodular opacities in the uppe r lobes bilaterally with peripheral and posterior distribution. No focal confluent consolidation. N o pleural effusion. No pneumothorax. AORTA AND GREAT VESSELS: No aneurysm. Contrast bolus not optimized for the aorta. HEART: No pericardial effusion. No significant coronary artery calcifications. PULMONARY ARTERIES: No emboli visualized in the main pulmonary arteries or the segmental branches. HILAR AND MEDIASTINAL STRUCTURES: Prominent right hilar lymph nodes are likely reactive. HARDWARE: None in the chest. UPPER ABDOMEN: No significant findings. Limited exam. THYROID AND OTHER SOFT TISSUES: No masses. No adenopathy. BONES: No acute or significant finding. 3D MIPS: Confirm above findings. OTHER: No other significant finding. IMPRESSION: 1. Worsening patchy areas of ground-glass and nodular opacities in both lungs, suspicious for multifo raffy pneumonia. 2. No pulmonary embolism. COMMENT: Quality ID # [id number]: Final reports with documentation of one or more dose reduction techniques (e.g., Automated exposure control, adjustment of the mA and/or kV according to patient size, use of iterative reconstruction technique) TECHNICAL DOCUMENTATION: JOB ID: [id number] 2010 [employer]- All Rights Reserved Reading location - IP/workstation name: [email or web address]
[2020-07-08] MEDS ORDERED: RINGERS SOLUTION,LACTATED 1,000 ML IV ONE (17:01)
[2020-07-08] MEDS ORDERED: ACETAMINOPHEN 325 MG TABLET PO PRN (19:08)
[2020-07-08] MEDS ORDERED: ONDANSETRON HCL INJ/PF 4 MG/2 ML SDV IV PRN (19:08)
[2020-07-08] MEDS ORDERED: DEXTROSE 5%-LACTATED RINGERS 1,000 ML IV PRN (19:08)
[2020-07-08 19:56] LABS: C-REACTIVE PROTEIN 55.8 mg/L (<10.0)
[2020-07-08] MEDS: ASCORBIC ACID 500 MG TABLET PO SCH (20:17)
[2020-07-08] MEDS: IPRATROPIUM/ALBUTEROL 0.5-2.5 MG/3 ML AMPUL NEB SCH (20:18)
[2020-07-08] MEDS: ZINC SULFATE 220 MG CAPSULE PO SCH (20:18)
[2020-07-08] MEDS: CHOLECALCIFEROL (D3) 1,000 UNIT (25 MCG) TABLET PO SCH (20:18)
--- NOTE | 2020-07-08 20:24 | PDOC H&P ---
History of Present Illness Admission Date/PCP: 07/08/20 17:52 ALVARO EDWARDS MD Patient complains of: Shortness of breath History of Present Illness: GIOVANNY YADAV is a 60 year old female, past medical history of pulmonary embolism, hypothyroidism, seizure disorder, hypertension who came in the ED today due to shortness of breath. Patient tested positive for Covid June 29 and had very minor symptoms of body aches, nasal congestion, on and off fever. T caridad she had increased shortness of breath with patient came to the emergency room. In the ED pressure 127/73, heart rate 110, respiratory rate 22, O2 sat 93% on room air, temperature 98.4. CTA chest showed worsening patchy areas of groundglass and nodular opacities in both lungs suspicious for multifocal pneumonia. No pulmonary embolism. According to the ED physician she would drop her O2 sat to 90% with ambulation. Hospitalist service was called for further evaluation and management. When I saw her in the ED she was saturating 94% on room air. Lung sounds are clear. However she does complain of shortness of breath with ambulation, increased heart rate and fatigue. I explained to her that currently she does not meet criteria for remdesivir treatment as she is not on home oxygen. She has already gotten 3 doses of ivermectin and antibiotics to get her with steroids. I have agreed to admit her for observation overnight and will do a walk test tomorrow if she is not requiring any oxygen she will be discharged home to complete her recovery. She agreed to this plan. Past Medical History Cardiac Medical History: Reports: DVT - Patient is on Coumadin at this time., Hypertension, Pulmonary Embolism Denies: Myocardial Infarction Pulmonary Medical History: Denies: Asthma EENT Medical History: Reports: None Neurological Medical History: Reports: Seizures - The patient takes Dilantin Endocrine Medical History: Reports: None Renal/ Medical History: Reports: None Malignancy Medical History: Reports: None GI Medical History: Denies: Hepatitis, Hiatal Hernia Psychiatric Medical History: Reports: None Hematology: Denies: Anemia, Sickle Cell Disease Past Surgical History Past Surgical History: Reports: Cholecystectomy, Orthopedic Surgery - left meniscus, Tubal Ligation Denies: Amputation, Hysterectomy, Mastectomy, Pacemaker Social History Information Source: Patient Lives with: Family Smoking Status: Never Smoker Electronic Cigarette use?: No - Advance Directive Resuscitation Status: Full Code Family History Family History: Reviewed & Not Pertinent Parental Family History Reviewed: Yes Children Family History Reviewed: Yes Sibling(s) Family History Reviewed.: Yes Medication/Allergy Home Medications: Lisinopril/Hydrochlorothiazide [Lisinopril-Hctz 20-25 mg Tab] 1 each PO BID 01/07/13 Phenytoin Sodium Extended [Dilantin] 400 mg PO DAILY 01/07/13 Warfarin Sodium [Coumadin] 10 mg PO DAILY 01/07/13 Cyanocobalamin (Vitamin B-12) [Vitamin B-12] 1 tab PO DAILY 06/10/17 Ergocalciferol (Vitamin D2) [Vitamin D] 1 tab PO DAILY 06/10/17 Azithromycin [Zithromax 250 mg Tablet] 250 mg PO ASDIR PRN #6 tablet 07/03/20 Dexamethasone [Decadron 4 Mg Tablet] 4 mg PO DAILY #5 tablet 07/03/20 Famotidine [Pepcid 20 mg Tablet] 20 mg PO BID #12 tablet 07/03/20 Ivermectin [Stromectol 3 mg Tablet] 3 mg PO DAILY #3 tablet 07/03/20 Allergies/Adverse Reactions: iodine Allergy (Verified 07/03/20 07:04) Review of Systems Constitutional: PRESENT: fatigue, fever(s) Physical Exam Vital Signs: Temp Pulse Resp BP Pulse Ox 98.4 F 110 H 20 114/60 93 07/08/20 19:00 07/08/20 17:44 07/08/20 19:00 07/08/20 19:00 07/08/20 19:00 Intake & Output 07/07/20 07/08/20 07/09/20 06:59 06:59 06:59 Intake Total 1000 Balance 1000 Weight 82.1 kg General appearance: PRESENT: no acute distress, cooperative Head exam: PRESENT: atraumatic, normocephalic Eye exam: PRESENT: EOMI, PERRLA Mouth exam: PRESENT: moist Neck exam: PRESENT: full ROM Respiratory exam: PRESENT: clear to auscultation bjorn, symmetrical, unlabored Cardiovascular exam: PRESENT: RRR, +S1, +S2, tachycardia Pulses: PRESENT: +2 pedal pulses bilateral GI/Abdominal exam: PRESENT: normal bowel sounds Extremities exam: PRESENT: full ROM Musculoskeletal exam: PRESENT: full ROM Neurological exam: PRESENT: alert, awake, oriented to person, oriented to place, oriented to time, oriented to situation Psychiatric exam: PRESENT: normal mood Skin exam: PRESENT: normal color Results Laboratory Results: 07/08/20 11:35 07/08/20 11:35 07/08/20 07/08/20 07/08/20 11:35 11:35 11:35 WBC 4.6 RBC 4.72 Hgb 14.3 Hct 40.0 MCV 85 MCH 30.3 MCHC 35.7 RDW 12.5 Plt Count 186 Seg Neutrophils % 64.8 Sodium 131.5 L Potassium 4.0 Chloride 96 L Carbon Dioxide 30 Anion Gap 6 BUN 12 Creatinine 0.55 Est GFR ( Amer) > 60 Glucose 91 Calcium 8.7 Magnesium 2.1 Total Bilirubin 0.5 AST 103 H Alkaline Phosphatase 135 H Total Protein 7.5 Albumin 4.0 Lipase 109.4 Urine Color Urine Appearance Urine pH Ur Specific [place] Urine Protein Urine Glucose (UA) Urine Ketones Urine Blood Urine Nitrite Ur Leukocyte Esterase Urine WBC (Auto) Urine RBC (Auto) 07/08/20 11:35 WBC RBC Hgb Hct MCV MCH MCHC RDW Plt Count Seg Neutrophils % Sodium Potassium Chloride Carbon Dioxide Anion Gap BUN Creatinine Est GFR ( Amer) Glucose Calcium Magnesium Total Bilirubin AST Alkaline Phosphatase Total Protein Albumin Lipase Urine Color YELLOW Urine Appearance CLEAR Urine pH 5.0 Ur Specific [place] 1.021 Urine Protein NEGATIVE Urine Glucose (UA) NEGATIVE Urine Ketones NEGATIVE Urine Blood NEGATIVE Urine Nitrite NEGATIVE Ur Leukocyte Esterase NEGATIVE Urine WBC (Auto) 1 Urine RBC (Auto) 2 07/08/20 11:35 Troponin I < 0.012 Impressions: Chest X-Ray 07/08/20 10:40 IMPRESSION: Stable radiographic appearance of the chest. No evidence of acute cardiopulmonary abnormality. Chest/Abdomen CTA 07/08/20 13:36 IMPRESSION: 1. Worsening patchy areas of ground-glass and nodular opacities in both lungs, suspicious for multifocal pneumonia. 2. No pulmonary embolism. Assessment and Plan - Diagnosis (1) Pneumonia due to COVID-19 virus Is this a current diagnosis for this admission?: Yes Plan: Patient was diagnosed with COVID-19 last June 29, 2020 -Coming in due to shortness of breath and tachycardia -Has already received ivermectin, azithromycin, steroids for 3 days outpatient - CT angio showed worsening bilateral opacities -CRP and ferritin pending -Patient is not requiring oxygen therefore she does not meet criteria for remdesivir treatment. -We will order convalescent plasma -Heart vitamin C, vitamin D, zinc, melatonin -If by tomorrow she is still not requiring oxygen she can be discharged to continue her recovery at home (2) Hypothyroidism Qualifiers: Hypothyroidism type: unspecified Qualified Code(s): E03.9 - Hypothyroidism, unspecified Is this a current diagnosis for this admission?: Yes Plan: -On 50 mg of Synthroid resumed (3) History of seizures Is this a current diagnosis for this admission?: Yes Plan: Dilantin 300 mg resumed (4) History of pulmonary embolism Is this a current diagnosis for this admission?: Yes Plan: On Coumadin 12 mg daily resumed (5) Tachycardia Is this a current diagnosis for this admission?: Yes Plan: -This is likely secondary to mild hypoxia -Continue to monitor - Time Time Spent with patient: 25-34 minutes Medications reviewed and adjusted accordingly: Yes Anticipated Discharge Disposition: Home, Self Care Anticipated Discharge Timeframe: within 48 hours
--- NOTE | 2020-07-08 20:37 | EKG REPORT ---
SEVERITY:- NORMAL ECG - SINUS RHYTHM : Confirmed by: Choco Waldron MD 08-Jul-2020 20:36:42
[2020-07-08] MEDS ORDERED: WARFARIN SODIUM 5 MG TABLET PO SCH (22:00)
[2020-07-08] MEDS ORDERED: WARFARIN SODIUM 5 MG TABLET ONE (22:09)
[2020-07-08] MEDS ORDERED: PHENYTOIN SODIUM EXTENDED 100 MG CAPSULE PO ONE (23:30)
[2020-07-09 07:03] LABS: ABSOLUTE LYMPHOCYTES (AUTO) 1.5 10^3/uL (0.5-4.7); ABSOLUTE MONOCYTES (AUTO) 0.7 10^3/uL (0.1-1.4); ABSOLUTE NEUT (AUTO) 2.9 10^3/uL (1.7-8.2); BASOPHILS % (AUTO) 0.6 % (0-2); EOSINOPHILS % (AUTO) 0.3 % (0-6); HEMATOCRIT 35.8 % (36.0-47.0); LYMPHOCYTES % (AUTO) 28.6 % (13-45); MEAN CORPUSCULAR HEMOGLOBIN 30.4 pg (27.0-33.4); MEAN CORPUSCULAR HGB CONC 36.2 g/dL (32.0-36.0); MEAN CORPUSCULAR VOLUME 84 fl (80-97); MONOCYTES % (AUTO) 13.8 % (3-13); PLATELET COUNT 179 10^3/uL (150-450); RED BLOOD COUNT 4.27 10^6/uL (3.72-5.28); RED CELL DISTRIBUTION WIDTH 12.5 % (11.5-14.0); SEGMENTED NEUTROPHILS % (AUTO) 56.7 % (42-78); TOTAL CELLS COUNTED % (AUTO) 100 %; WHITE BLOOD COUNT 5.1 10^3/uL (4.0-10.5)
[2020-07-09 07:13] LABS: PROTHROMBIN TIME 30.2 SEC (11.4-15.4)
[2020-07-09 07:38] LABS: ALBUMIN 3.4 g/dL (3.5-5.0); ALKALINE PHOSPHATASE 104 U/L (38-126); ASPARTATE AMINO TRANSFERASE 74 U/L (14-36); BILIRUBIN,DIRECT 0.2 mg/dL (0.0-0.4); BILIRUBIN,TOTAL 0.5 mg/dL (0.2-1.3); BLOOD UREA NITROGEN 10 mg/dL (7-20); CALCIUM 8.6 mg/dL (8.4-10.2); CHLORIDE 101 mmol/L (98-107); GLUCOSE 99 mg/dL (75-110); POTASSIUM 4.2 mmol/L (3.6-5.0); TOTAL PROTEIN 6.4 g/dL (6.3-8.2)
[2020-07-09 07:54] LABS: ANION GAP 7 (5-19); CARBON DIOXIDE 27 mmol/L (22-30)
[2020-07-09] MEDS: IPRATROPIUM/ALBUTEROL 0.5-2.5 MG/3 ML AMPUL NEB SCH ×3 (08:09→15:49)
[2020-07-09 09:23] VITALS: BP 110/61
[2020-07-09] MEDS: ASCORBIC ACID 500 MG TABLET PO SCH (09:28)
[2020-07-09] MEDS: CHOLECALCIFEROL (D3) 1,000 UNIT (25 MCG) TABLET PO SCH (09:28)
[2020-07-09] MEDS: ZINC SULFATE 220 MG CAPSULE PO SCH (09:28)
[2020-07-09] MEDS ORDERED: DEXAMETHASONE SOD PHOS INJ 10 MG/1 ML VIAL IV SCH (10:00)
[2020-07-09] MEDS ORDERED: LISINOPRIL 10 MG TABLET PO SCH (10:00)
[2020-07-09] MEDS ORDERED: (PENDING PHARMACY ID) (Lisinopril/Hydrochlorothiazide [Lisinopril-Hctz 20-25 Mg Tab] 1 EAC PO SCH (10:00)
[2020-07-09] MEDS ORDERED: HYDROCHLOROTHIAZIDE 25 MG TABLET PO SCH (10:00)
--- NOTE | 2020-07-09 20:46 | PDOC DISCHARGE SUMMARY ---
Impression - Admit/DC Date/PCP Admission Date/Primary Care Provider: 07/08/20 17:52 ALVARO EDWARDS MD Discharge Date: 07/09/20 - Discharge Diagnosis (1) Pneumonia due to COVID-19 virus Is this a current diagnosis for this admission?: Yes (2) Hypothyroidism Is this a current diagnosis for this admission?: Yes (3) History of seizures Is this a current diagnosis for this admission?: Yes (4) History of pulmonary embolism Is this a current diagnosis for this admission?: Yes (5) Tachycardia Is this a current diagnosis for this admission?: Yes - Assessment Summary: (1) Pneumonia due to COVID-19 virus Is this a current diagnosis for this admission?: Yes Plan: Patient was diagnosed with COVID-19 last June 29, 2020 -Coming in due to shortness of breath and tachycardia -Has already received ivermectin, azithromycin, steroids for 3 days outpatient - CT angio showed worsening bilateral opacities -CRP and ferritin pending -Patient is not requiring oxygen therefore she does not meet criteria for remdesivir treatment. -We will order convalescent plasma -Heart vitamin C, vitamin D, zinc, melatonin -If by tomorrow she is still not requiring oxygen she can be discharged to continue her recovery at home (2) Hypothyroidism Qualifiers: Hypothyroidism type: unspecified Qualified Code(s): E03.9 - Hypothyroidism, unspecified Is this a current diagnosis for this admission?: Yes Plan: -On 50 mg of Synthroid resumed (3) History of seizures Is this a current diagnosis for this admission?: Yes Plan: Dilantin 300 mg resumed (4) History of pulmonary embolism Is this a current diagnosis for this admission?: Yes Plan: On Coumadin 12 mg daily resumed (5) Tachycardia Is this a current diagnosis for this admission?: Yes Plan: -This is likely secondary to mild hypoxia -Continue to monitor - Additional Information Resuscitation Status: Full Code Discharge Diet: As Tolerated Discharge Activity: Activity As Tolerated Referrals: ALVARO EDWARDS MD [Primary Care Provider] - Follow up as needed Home Medications: Phenytoin Sodium Extended [Dilantin] 400 mg PO DAILY 01/07/13 Famotidine [Pepcid 20 mg Tablet] 20 mg PO BID #12 tablet 07/03/20 Ivermectin [Stromectol 3 mg Tablet] 3 mg PO DAILY #3 tablet 07/03/20 Dexamethasone [Decadron 4 Mg Tablet] 4 mg PO DAILY 07/09/20 Levothyroxine Sodium [Synthroid 50 Mcg Tablet] 50 mcg PO QAM 07/09/20 Lisinopril/Hydrochlorothiazide [Lisinopril-Hctz 10-12.5 mg Tab] 1 each PO BID 07/09/20 Loratadine/Pseudoephedrine [Loratadine-D 24Hr Tablet] 1 each PO DAILY 07/09/20 Warfarin Sodium [Jantoven 4 mg Tablet] 12 mg PO DAILY 07/09/20 History of Present Illiness History of Present Illness: GIOVANNY YADAV is a 60 year old female, past medical history of pulmonary embolism, hypothyroidism, seizure disorder, hypertension who came in the ED today due to shortness of breath. Patient tested positive for Covid June 29 and had very minor symptoms of body aches, nasal congestion, on and off fever. Today she had increased shortness of breath with patient came to the emergency room. In the ED pressure 127/73, heart rate 110, respiratory rate 22, O2 sat 93% on room air, temperature 98.4. CTA chest showed worsening patchy areas of groundglass and nodular opacities in both lungs suspicious for multifocal pneumonia. No pulmonary embolism. According to the ED physician she would drop her O2 sat to 90% with ambulation. Hospitalist service was called for further evaluation and management. When I saw her in the ED she was saturating 94% on room air. Lung sounds are clear. However she does complain of shortness of breath with ambulation, increased heart rate and fatigue. I explained to her that currently she does not meet criteria for remdesivir treatment as she is not on home oxygen. She has already gotten 3 doses of ivermectin and antibiotics to get her with st eroids. I have agreed to admit her for observation overnight and will do a walk test tomorrow if she is not requiring any oxygen she will be discharged home to complete her recovery. She agreed to this plan. Hospital Course Hospital Course: Patient was seen and examined at bedside. She remains 99% on room air with mild tachycardia. She reports that she feels much better. She refused the convalescent plasma. Patient was discharged on vitamin C , D, zinc and was advised to come back if she becomes more short of breath or if she desaturates. Physical Exam Vital Signs: Temp Pulse Resp BP Pulse Ox 98.1 F 88 20 110/61 93 07/09/20 06:12 07/09/20 02:33 07/09/20 09:01 07/09/20 09:01 07/09/20 09:01 Intake & Output 07/08/20 07/09/20 07/10/20 06:59 06:59 06:59 Intake Total 1500 1000 Balance 1500 1000 Weight 82.1 kg General appearance: PRESENT: no acute distress, cooperative Head exam: PRESENT: atraumatic, normocephalic Eye exam: PRESENT: EOMI, PERRLA Mouth exam: PRESENT: moist Neck exam: PRESENT: full ROM Respiratory exam: PRESENT: clear to auscultation bjorn, symmetrical, unlabored Cardiovascular exam: PRESENT: RRR, +S1, +S2 GI/Abdominal exam: PRESENT: normal bowel sounds, soft. ABSENT: rebound, tenderness Extremities exam: PRESENT: full ROM Musculoskeletal exam: PRESENT: full ROM Neurological exam: PRESENT: alert, awake, oriented to person, oriented to place, oriented to time, oriented to situation Psychiatric exam: PRESENT: normal mood Skin exam: PRESENT: normal color Results Laboratory Results: WBC 5.1 10^3/uL (4.0-10.5) 07/09/20 06:45 RBC 4.27 10^6/uL (3.72-5.28) 07/09/20 06:45 Hgb 13.0 g/dL (12.0-15.5) 07/09/20 06:45 Hct 35.8 % (36.0-47.0) L 07/09/20 06:45 MCV 84 fl (80-97) 07/09/20 06:45 MCH 30.4 pg (27.0-33.4) 07/09/20 06:45 MCHC 36.2 g/dL (32.0-36.0) H 07/09/20 06:45 RDW 12.5 % (11.5-14.0) 07/09/20 06:45 Plt Count 179 10^3/uL (150-450) 07/09/20 06:45 Lymph % (Auto) 28.6 % (13-45) 07/09/20 06:45 [place] % (Auto) 13.8 % (3-13) H 07/09/20 06:45 Eos % (Auto) 0.3 % (0-6) 07/09/20 06:45 Baso % (Auto) 0.6 % (0-2) 07/09/20 06:45 Absolute Neuts (auto) 2.9 10^3/uL (1.7-8.2) 07/09/20 06:45 Absolute Lymphs (auto) 1.5 10^3/uL (0.5-4.7) 07/09/20 06:45 Absolute Monos (auto) 0.7 10^3/uL (0.1-1.4) 07/09/20 06:45 Absolute Eos (auto) 0.0 10^3/uL (0.0-0.6) 07/09/20 06:45 Absolute Basos (auto) 0.0 10^3/uL (0.0-0.2) 07/09/20 06:45 Seg Neutrophils % 56.7 % (42-78) 07/09/20 06:45 PT 30.2 SEC (11.4-15.4) H 07/09/20 06:45 INR 2.90 07/09/20 06:45 APTT 47.0 SEC (23.5-35.8) H 07/08/20 11:35 D-Dimer 0.31 ug/mL (0.00-0.50) 07/08/20 20:55 Sodium 134.6 mmol/L (137-145) L 07/09/20 06:45 Potassium 4.2 mmol/L (3.6-5.0) 07/09/20 06:45 Chloride 101 mmol/L (98-107) 07/09/20 06:45 Carbon Dioxide 27 mmol/L (22-30) 07/09/20 06:45 Anion Gap 7 (5-19) 07/09/20 06:45 BUN 10 mg/dL (7-20) 07/09/20 06:45 Creatinine 0.40 mg/dL (0.52-1.25) L 07/09/20 06:45 Est GFR ( Amer) > 60 (>60) 07/09/20 06:45 Est GFR (MDRD) Non-Af > 60 (>60) 07/09/20 06:45 Glucose 99 mg/dL (75-110) 07/09/20 06:45 Calcium 8.6 mg/dL (8.4-10.2) 07/09/20 06:45 Magnesium 2.1 mg/dL (1.6-2.3) 07/08/20 11:35 Ferritin 238.00 ng/mL (11.1-264.0) 07/08/20 11:35 Total Bilirubin 0.5 mg/dL (0.2-1.3) 07/09/20 06:45 Direct Bilirubin 0.2 mg/dL (0.0-0.4) 07/09/20 06:45 Neonat Total Bilirubin Not Reportable 07/09/20 06:45 Neonat Direct Bilirubin Not Reportable 07/09/20 06:45 Neonat Indirect Bili Not Reportable 07/09/20 06:45 AST 74 U/L (14-36) H 07/09/20 06:45 ALT 112 U/L (<35) H 07/09/20 06:45 Alkaline Phosphatase 104 U/L (38-126) 07/09/20 06:45 Troponin I < 0.012 ng/mL 07/08/20 11:35 C-Reactive Protein 55.8 mg/L (<10.0) H 07/08/20 11:35 Total Protein 6.4 g/dL (6.3-8.2) 07/09/20 06:45 Albumin 3.4 g/dL (3.5-5.0) L 07/09/20 06:45 Lipase 109.4 U/L (23-300) 07/08/20 11:35 Urine Color YELLOW 07/08/20 11:35 Urine Appearance CLEAR 07/08/20 11:35 Urine pH 5.0 (5.0-9.0) 07/08/20 11:35 Ur Specific [place] 1.021 07/08/20 11:35 Urine Protein NEGATIVE mg/dL (NEGATIVE) 07/08/20 11:35 Urine Glucose (UA) NEGATIVE mg/dL (NEGATIVE) 07/08/20 11:35 Urine Ketones NEGATIVE mg/dL (NEGATIVE) 07/08/20 11:35 Urine Blood NEGATIVE (NEGATIVE) 07/08/20 11:35 Urine Nitrite NEGATIVE (NEGATIVE) 07/08/20 11:35 Urine Bilirubin NEGATIVE (NEGATIVE) 07/08/20 11:35 Urine Urobilinogen NEGATIVE mg/dL (<2.0) 07/08/20 11:35 Ur Leukocyte Esterase NEGATIVE (NEGATIVE) 07/08/20 11:35 Urine WBC (Auto) 1 /HPF 07/08/20 11:35 Urine RBC (Auto) 2 /HPF 07/08/20 11:35 Squamous Epi Cells Auto <1 /HPF 07/08/20 11:35 Urine Mucus (Auto) OCC /LPF 07/08/20 11:35 Urine Ascorbic Acid 40 (NEGATIVE) H 07/08/20 11:35 Blood Type Cancelled 07/08/20 20:25 07/08/20 11:35 Troponin I < 0.012 Impressions: Chest X-Ray 07/08/20 10:40 IMPRESSION: Stable radiographic appearance of the chest. No evidence of acute cardiopulmonary abnormality. Chest/Abdomen CTA 07/08/20 13:36 IMPRESSION: 1. Worsening patchy areas of ground-glass and nodular opacities in both lungs, suspicious for multifocal pneumonia. 2. No pulmonary embolism. Plan Plan of Treatment: - ff. up with PCP - take medications as prescribed Time Spent: Less than 30 Minutes Stroke Is this a Stroke Patient?: No Acute Heart Failure Is this a Heart Failure Patient?: No
[2020-07-09] MEDS ORDERED: PHENYTOIN SODIUM EXTENDED 100 MG CAPSULE PO SCH (22:00)
[2020-07-09] MEDS ORDERED: WARFARIN SODIUM 4 MG TABLET PO SCH (22:00)
[2020-07-10] MEDS ORDERED: WARFARIN SODIUM 4 MG PO SCH (10:00)
== END 2020-07-09 15:00 | disposition home or self-care (01) ==
LOC: ER 09:25 → EH 17:52
PROVIDERS: ADMIT Internal Medicine; ATTEND Internal Medicine
DX: U07.1 COVID-19 (principal); J12.89 Other viral pneumonia; E03.9 Hypothyroidism, unspecified; R00.0 Tachycardia, unspecified; Z86.711 Personal history of pulmonary embolism; Z87.892 Personal history of anaphylaxis; Z79.01 Long term (current) use of anticoagulants; G40.909 Epilepsy, unspecified, not intractable, without status epilepticus; I10 Essential (primary) hypertension
CPT/HCPCS: 93005; 94640; 99285; 96374; 36415 ×2; 87086; 82728; 83690; 83735; 85025 ×2; 85610 ×2; 85730; 86140; 80053 ×2; 81001; 84484; 85379; 71045; 71275; 93010; G0378 ×2; J2930; J3490 ×4; J7121; J7120; J1100